=== PATIENT | female | born 1985 | race Hispanic/Latino ===

== ENCOUNTER 2016-08-08 21:50 | Outpatient (CLI) | payer MEDICAID ==
[2016-08-08 22:18] VITALS: BP 111/74
[2016-08-08] MEDS ORDERED: LACTATED RINGERS 500 ML IV ONE (22:28)
[2016-08-08] MEDS ORDERED: LACTATED RINGERS 1,000 ML ONE (22:38)
== END 2016-08-08 23:30 | disposition home or self-care (01) ==
LOC: TRG 21:50
PROVIDERS: ATTEND Obstetrics & Gynecology Gynecology
DX: O47.9 False labor, unspecified (principal); Z3A.00 Weeks of gestation of pregnancy not specified
CPT/HCPCS: 96360; J7120

== ENCOUNTER 2016-08-13 21:07 | Inpatient (IN) | payer MEDICAID ==
[2016-08-13] MEDS ORDERED: LACTATED RINGERS 1,000 ML IV ONE (21:17)
[2016-08-13 22:01] LABS: Bilirubin,Urine NEG (Negative); Blood,Urine SM (Negative); Ketones,Urine 80 mg/dL (Negative); Leukocyte Esterase,Urine LG (Negative); Mucus,Urine 1+ /HPF; Nitrite,Urine NEG (Negative)
[2016-08-13] MEDS ORDERED: ROCEPHIN/NS 2 GM/100 ML 100 ML IV ONE (22:01)
[2016-08-13] MEDS ORDERED: ZOFRAN IV ONE (22:02)
[2016-08-13] MEDS ORDERED: TYLENOL PO ONE (22:02)
[2016-08-13 22:03] LABS: WBC,Urine > 182.0 /HPF (0.0-6.0)
[2016-08-13 22:17] LABS: Basophils % (Auto) 0.2 % (0.0-1.8); Hematocrit 29.6 % (30.3-42.9); Hemoglobin 9.6 gm/dl (10.1-14.3); Mean Corpuscular HGB Conc 32 % (30-34); Mean Corpuscular Hemoglobin 28 pg (28-32); Mean Corpuscular Volume 88 fl (79-97); Platelet Count 293 K/mm3 (140-440); Red Blood Count 3.37 M/mm3 (3.65-5.03); Red Cell Distribution Width 16.2 % (13.2-15.2); White Blood Count 19.9 K/mm3 (4.5-11.0)
--- NOTE | 2016-08-13 23:34 | History and Physical Report ---
History of Present Illness Date of examination: 08/13/16 Chief complaint: Fever x 24 hrs History of present illness: Pt is a 31yo WF EDC 10/02/16; EGA 32 6/7 weeks presents to [facility] L&D complaining of fever and left sided back pains. She received care at [facility]. Essential history is patient is status post 2 prior admissions (on 06/06/2016 and 07/13/16) with pyelonephritis. She had Temp spikes and was started on Ancef. Urine culture on both visits were positive for Proteus mirabilis sensitive to most antibiotics except macrobid. She was discharged on Bactrim DS to complete 14 days. Claims to have been compliant with her medication. In Triage today, she has a temp of 103. No vaginal discharge, no loss of fluid , no uterine contractions plus movement WBC is 20 and UA shows large amount of white cells Growth scan obtained 07/14/2016 shows EFW 1253 g with a posterior placenta, ANTHONY 8.8 cm Past History Past Medical History: no pertinent history Past Surgical History: no surgical history [employer] History: denies: chlamydia, gonorrhea, hepatitis B, hepatitis C, herpes, HIV , syphilis Social history: single, full code. denies: smoking, alcohol abuse, prescription drug abuse, IV drug use - Obstetrical History Expected Date of Delivery: 10/02/16 Actual Gestation: 33 Week(s) 0 Day(s) : 5 Para: 4 Medications and Allergies Allergies Allergy/AdvReac Type Severity Reaction Status Date / Time No Known Allergies Allergy Verified 05/29/16 08:05 Home Medications Medication Instructions Recorded Confirmed Last Taken Type Sulfamethoxazole/Trimethoprim 1 tab PO BID #28 tab 06/09/16 Unknown Rx [Bactrim 400-80 mg] Acetaminophen [Acetaminophen TAB] 500 mg PO Q6HR #30 tablet 06/10/16 Unknown Rx Sulfamethoxazole/Trimethoprim 1 each PO BID #28 tablet 07/15/16 Unknown Rx [Bactrim DS TAB] Active Meds: Active Medications Acetaminophen (Tylenol) 500 mg PO Q6H ADELSO Lactated Ringer's (Lactated Ringers) 1,000 mls @ 150 mls/hr IV DIRECT ADELSO Review of Systems Constitutional: fever, fatigue Cardiovascular: no chest pain, no lightheadedness, no shortness of breath, no dyspnea on exertion, no high blood pressure Respiratory: no cough, no cough with sputum, no shortness of breath, no dyspnea on exertion Gastrointestinal: nausea, vomiting, no diarrhea Genitourinary: no vaginal bleeding, no vaginal discharge, no leakage of fluid - Vital Signs Vital signs: Vital Signs Temp 102.8 F H 08/13/16 21:20 Temp Pulse Resp BP Pulse Ox 103.1 F H 109 H 112/68 99 08/13/16 23:00 08/13/16 23:26 08/13/16 21:27 08/13/16 23:26 - Physical Exam Cardiovascular: Regular rate, Normal S1, Normal S2 Lungs: Positive: Clear to auscultation, Normal air movement Abdomen: Positive: normal appearance, soft, tenderness (mild tenderness). Negative: distention, guarding, rigidity Genitourinary (Female): Positive: normal external genitalia Vulva: both: normal Vagina: Negative: discharge Uterus: Positive: enlarged (EFW ~ 3400), tender Adnexa: both: normal Extremities: Positive: normal - Obstetrical FHR: category 2 ( tachycardia) Cervical Dilatation: 2 station: -3 Results Result Diagrams: 08/13/16 22:00 Abnormal lab results 08/13/16 08/13/16 Range/Units 21:31 22:00 WBC 19.9 H (4.5-11.0) K/mm3 RBC 3.37 L (3.65-5.03) M/mm3 Hgb 9.6 L (10.1-14.3) gm/dl Hct 29.6 L (30.3-42.9) % RDW 16.2 H (13.2-15.2) % Lymph % (Auto) 7.2 L (13.4-35.0) % [place] % (Auto) 7.7 H (0.0-7.3) % [place] # 1.5 H (0.0-0.8) K/mm3 Seg Neutrophils % 84.9 H (40.0-70.0) % Seg Neutrophils # 16.9 H (1.8-7.7) K/mm3 Urine WBC (Auto) > 182.0 H (0.0-6.0) /HPF All other labs normal. Assessment and Plan 31-year-old at 32+6 wks with suspected recurrent pyelonephritis -Cat 2 tracing with tachycardia Issues -Limited care -3rd admission for suspected Pyelo -Prior urine culture positive for Proteus mirabilis sensitive to Bactrim x 2 ( and 07/13/16) -Pyuria and Leukocytosis P: -Admit -Obtain labs including CMP (UA and CBC already complete) -HIV screen -Blood and Urine culture -UDS -IV fluid therapy -IV Zosyn -Antipyretic therapy -Renal sono and BPP -ID consult in AM - Patient Problems (1) 32 weeks gestation of Current Visit: Yes Status: Acute (2) Acute pyelonephritis in third trimester, antepartum Diagnosis Date: 07/14/16 Current Visit: No Status: Suspected (3) Urinary tract infection with pyuria Current Visit: Yes Status: Acute
[2016-08-13] MEDS ORDERED: SODIUM CHLORIDE FLUSH SYRINGE 10 ML IV PRN (23:43)
[2016-08-13] MEDS ORDERED: BENADRYL PO PRN (23:43)
[2016-08-13] MEDS ORDERED: COLACE PO PRN (23:43)
[2016-08-13] MEDS ORDERED: MYLICON PO PRN (23:43)
[2016-08-13] MEDS ORDERED: ALUM-MAG HYDROX-SIMETH 200-200-20MG/5ML PO PRN (23:43)
[2016-08-13] MEDS ORDERED: LACTATED RINGERS 1,000 ML IV SCH (23:45)
[2016-08-14] MEDS ORDERED: TYLENOL PO SCH
[2016-08-14] MEDS: ZOSYN/NS 4.5GM/100ML 100 ML IV SCH ×3 (01:30→20:30)
[2016-08-14] MEDS: TYLENOL PO SCH ×3 (04:58→19:23)
[2016-08-14 05:52] LABS: Alanine Aminotransferase 8 units/L (7-56); Albumin 3.2 g/dL (3.9-5); Albumin/Globulin Ratio 0.9 %; Alkaline Phosphatase 93 units/L (35-129); Anion Gap 27 mmol/L; BUN/Creatinine Ratio 12.85; Bilirubin,Total 1.7 mg/dL (0.1-1.2); Blood Urea Nitrogen 9 mg/dL (7-17); Calcium 8.8 mg/dL (8.4-10.2); Carbon Dioxide 18 mmol/L (22-30); Potassium 3.5 mmol/L (3.6-5.0); Sodium 135 mmol/L (137-145); Total Protein 6.6 g/dL (6.3-8.2)
[2016-08-14 05:53] LABS: Glucose 27 mg/dL (65-100)
[2016-08-14 06:14] LABS: HIV-1 Antigen p24 Non React (Non React); HIVR-1/2 Ab Non React (Non React)
--- NOTE | 2016-08-14 07:19 | Admit Criteria Form ---
Admission Criteria Documentation: PYELONEPHRITIS, ACUTE Clinical Indications for Admission to Inpatient Care (Place 'X' for any and all applicable criteria): Admission is indicated for ANY ONE of the following 1,2,3,4,5 [ ]I. Outpatient treatment has failed or is not feasible (eg, multidrug- resistant organism).5 [X]II. beyond 24 weeks' gestation6 [ ]III. Hemodynamic instability [ ]IV. Immunocompromised state (eg, AIDS, diabetes, sickle cell disease) [ ]V. Known renal or urologic abnormalities (eg, indwelling catheter, structural abnormalities, renal calculi, urinary stent, previous urologic surgery) [ ]. Condition that requires drainage procedure, including ANY ONE of the following: [ ]a) Urinary obstruction [ ]b) Pyelitis [ ]c) Pyonephrosis [ ]d) Renal or perinephric abscess [ ]e) Emphysematous pyelonephritis 7 [ ]VII. Inpatient admission required rather than observation care (Also use Pyelonephritis, Acute: Observation Care Criteria as appropriate) because of ANY ONE of the following: [ ]a) High fever or infection requiring inpatient admission as indicated by ANY ONE of [id number] [ ]A. Documented bacteremia [ ]B. Temp>104.9 [id number] (oral) [ ]C. Temp>103.10F (oral) or <96.80F (rectal) that does not respond to all emergency treatment [ ]b) Acute renal failure [ ]c) Other significant finding or clinical condition judged not to be within the scope of observation care [ ]d) IV fluid to replace significant ongoing (eg, for over 24hrs) losses (> 3 L/m2 per day) [ ]e) Other condition,treatment or monitoring requiring inpatient admission The original [email or web address] content created by [employer] has been revised. The portions of the content which have been revised are identified through the use of italic text or in bold, and [facility] has neither reviewed nor approved the modified material. All other unmodified content is copyright [facility]. Please see references footnoted in the original [email or web address] edition 2016 Admission Criteria Met: Yes
--- NOTE | 2016-08-14 07:23 | Progress Note ---
Assessment and Plan 31-year-old at 33 wks with suspected recurrent pyelonephritis -BPP 8/8 yesterday Issues -Left hydronephrosis (Renal scan on 08/13/16) -Limited care -3rd admission for suspected Pyelo -Prior urine culture positive for Proteus mirabilis sensitive to Bactrim x 2 ( and 07/13/16) -Pyuria and Leukocytosis P: -Urology consult placed -Infectious Disease consult placed -Continue present care for now - Patient Problems (1) 32 weeks gestation of Current Visit: Yes Status: Acute (2) Acute pyelonephritis in third trimester, antepartum Diagnosis Date: 07/14/16 Current Visit: No Status: Suspected (3) Urinary tract infection with pyuria Current Visit: Yes Status: Acute Subjective - Subjective Date of service: 08/14/16 Principal diagnosis: IUP at 33 wks, Recurrent [place] Interval history: Patient seen and examined, stable. Temp still elevated at 102, no nausea vomiting at this time BPP obtained last night is 8 out of 8 with heart rate at 151 Renal ultrasound obtained on 08/13/2016 shows hydronephrosis in the left kidney at 2.3 cm extending into the renal pelvis. Left renal pelvis and calluses appear dilated. Left kidney appears enlarged Patient reports: new complaints, movement normal, no loss of fluid, no vaginal bleeding, no contractions Objective - Vital Signs Vital Signs: Vital Signs - 12hr 08/13/16 08/13/16 08/13/16 21:20 21:26 21:27 Temperature 102.8 F H Pulse Rate 127 H 127 H Respiratory Rate Blood Pressure 112/68 Blood Pressure [Right Arm] O2 Sat by Pulse 98 Oximetry 08/13/16 08/13/16 08/13/16 21:31 21:36 21:41 Temperature Pulse Rate 119 H 121 H 116 H Respiratory Rate Blood Pressure Blood Pressure [Right Arm] O2 Sat by Pulse 98 97 97 Oximetry 08/13/16 08/13/16 08/13/16 21:46 21:51 21:56 Temperature Pulse Rate 121 H 117 H 111 H Respiratory Rate Blood Pressure Blood Pressure [Right Arm] O2 Sat by Pulse 98 96 99 Oximetry 08/13/16 08/13/16 08/13/16 22:01 22:06 22:11 Temperature Pulse Rate 112 H 112 H 114 H Respiratory Rate Blood Pressure Blood Pressure [Right Arm] O2 Sat by Pulse 98 98 98 Oximetry 08/13/16 08/13/16 08/13/16 22:16 22:21 22:26 Temperature Pulse Rate 112 H 119 H 114 H Respiratory Rate Blood Pressure Blood Pressure [Right Arm] O2 Sat by Pulse 99 98 97 Oximetry 08/13/16 08/13/16 08/13/16 22:31 22:36 22:41 Temperature Pulse Rate 109 H 107 H 113 H Respiratory Rate Blood Pressure Blood Pressure [Right Arm] O2 Sat by Pulse 97 98 100 Oximetry 08/13/16 08/13/16 08/13/16 22:44 22:46 22:51 Temperature Pulse Rate 112 H 114 H 116 H Respiratory Rate Blood Pressure Blood Pressure [Right Arm] O2 Sat by Pulse 90 100 96 Oximetry 08/13/16 08/13/16 08/13/16 22:56 23:00 23:01 Temperature 103.1 F H Pulse Rate 117 H 113 H Respiratory Rate Blood Pressure Blood Pressure [Right Arm] O2 Sat by Pulse 94 97 Oximetry 08/13/16 08/13/16 08/13/16 23:06 23:11 23:16 Temperature Pulse Rate 115 H 113 H Respiratory Rate Blood Pressure Blood Pressure [Right Arm] O2 Sat by Pulse 95 96 91 Oximetry 08/13/16 08/13/16 08/13/16 23:21 23:26 23:36 Temperature Pulse Rate 113 H 109 H 108 H Respiratory Rate Blood Pressure Blood Pressure [Right Arm] O2 Sat by Pulse 97 99 96 Oximetry 08/13/16 08/13/16 08/13/16 23:41 23:42 23:46 Temperature Pulse Rate 113 H 109 H 109 H Respiratory Rate Blood Pressure 107/54 Blood Pressure [Right Arm] O2 Sat by Pulse 96 96 Oximetry 08/13/16 08/13/16 08/14/16 23:51 23:56 00:01 Temperature Pulse Rate 108 H 110 H 108 H Respiratory Rate Blood Pressure Blood Pressure [Right Arm] O2 Sat by Pulse 94 94 96 Oximetry 08/14/16 08/14/16 08/14/16 00:04 00:06 00:09 Temperature Pulse Rate 104 H 106 H 109 H Respiratory Rate Blood Pressure Blood Pressure [Right Arm] O2 Sat by Pulse 94 95 94 Oximetry 08/14/16 08/14/1608/14/17 00:11 00:16 00:21 Temperature Pulse Rate 108 H 110 H 103 H Respiratory Rate Blood Pressure Blood Pressure [Right Arm] O2 Sat by Pulse 94 98 97 Oximetry 08/14/16 08/14/16 08/14/16 00:26 00:31 00:36 Temperature Pulse Rate 105 H 110 H 99 H Respiratory Rate Blood Pressure Blood Pressure [Right Arm] O2 Sat by Pulse 97 98 99 Oximetry 08/14/16 08/14/16 08/14/16 00:41 00:46 00:51 Temperature Pulse Rate 110 H 112 H 109 H Respiratory Rate Blood Pressure Blood Pressure [Right Arm] O2 Sat by Pulse 98 97 98 Oximetry 08/14/16 08/14/16 08/14/16 00:56 01:01 01:06 Temperature Pulse Rate 108 H 114 H 112 H Respiratory Rate Blood Pressure Blood Pressure [Right Arm] O2 Sat by Pulse 99 98 98 Oximetry 08/14/16 08/14/16 08/14/16 01:11 01:16 01:21 Temperature Pulse Rate 111 H 104 H 107 H Respiratory Rate Blood Pressure Blood Pressure [Right Arm] O2 Sat by Pulse 99 99 99 Oximetry 08/14/16 08/14/16 08/14/16 01:26 01:30 01:31 Temperature 101.7 F H Pulse Rate 123 H 110 H Respiratory Rate Blood Pressure Blood Pressure [Right Arm] O2 Sat by Pulse 98 98 Oximetry 08/14/16 08/14/16 08/14/16 01:36 01:41 01:46 Temperature Pulse Rate 107 H 106 H 106 H Respiratory Rate Blood Pressure Blood Pressure [Right Arm] O2 Sat by Pulse 97 97 98 Oximetry 08/14/16 08/14/16 08/14/16 01:51 01:56 02:01 Temperature Pulse Rate 108 H 109 H 124 H Respiratory Rate Blood Pressure Blood Pressure [Right Arm] O2 Sat by Pulse 98 98 99 Oximetry 08/14/16 08/14/16 08/14/16 02:06 02:11 02:16 Temperature Pulse Rate 116 H 114 H 114 H Respiratory Rate Blood Pressure Blood Pressure [Right Arm] O2 Sat by Pulse 98 96 97 Oximetry 08/14/16 08/14/16 08/14/16 02:21 02:26 02:31 Temperature Pulse Rate 117 H 117 H 119 H Respiratory Rate Blood Pressure Blood Pressure [Right Arm] O2 Sat by Pulse 96 96 97 Oximetry 08/14/16 08/14/16 08/14/16 02:36 02:41 02:42 Temperature Pulse Rate 118 H 118 H 117 H Respiratory Rate Blood Pressure Blood Pressure [Right Arm] O2 Sat by Pulse 96 96 94 Oximetry 08/14/16 08/14/16 08/14/16 02:46 02:47 02:51 Temperature Pulse Rate 115 H 111 H 127 H Respiratory Rate Blood Pressure Blood Pressure [Right Arm] O2 Sat by Pulse 96 94 93 Oximetry 08/14/16 08/14/16 08/14/16 02:56 03:01 03:06 Temperature Pulse Rate 121 H 120 H 121 H Respiratory Rate Blood Pressure Blood Pressure [Right Arm] O2 Sat by Pulse 96 97 96 Oximetry 08/14/16 08/14/16 08/14/16 03:11 03:16 03:21 Temperature Pulse Rate 117 H 121 H 124 H Respiratory Rate Blood Pressure Blood Pressure [Right Arm] O2 Sat by Pulse 98 98 98 Oximetry 08/14/16 08/14/16 08/14/16 03:26 03:31 03:36 Temperature Pulse Rate 121 H 121 H 122 H Respiratory Rate Blood Pressure Blood Pressure [Right Arm] O2 Sat by Pulse 96 95 96 Oximetry 08/14/16 08/14/16 08/14/16 03:39 03:41 03:46 Temperature Pulse Rate 122 H 125 H 123 H Respiratory Rate Blood Pressure Blood Pressure [Right Arm] O2 Sat by Pulse 94 96 97 Oximetry 08/14/16 08/14/16 08/14/16 03:51 04:23 04:27 Temperature Pulse Rate 122 H 121 H 118 H Respiratory Rate Blood Pressure 101/52 Blood Pressure [Right Arm] O2 Sat by Pulse 97 96 Oximetry 08/14/16 08/14/16 08/14/16 04:28 04:30 04:33 Temperature 100.9 F H Pulse Rate 121 H 119 H Respiratory 18 Rate Blood Pressure Blood Pressure 101/52 [Right Arm] O2 Sat by Pulse 96 96 Oximetry 08/14/16 08/14/16 08/14/16 04:38 04:43 04:48 Temperature Pulse Rate 121 H 120 H 123 H Respiratory Rate Blood Pressure Blood Pressure [Right Arm] O2 Sat by Pulse 95 96 95 Oximetry 08/14/16 08/14/16 08/14/16 04:51 04:53 04:55 Temperature 102.1 F H Pulse Rate 120 H 124 H Respiratory Rate Blood Pressure Blood Pressure [Right Arm] O2 Sat by Pulse 94 95 Oximetry 08/14/16 08/14/16 08/14/16 04:58 05:03 05:08 Temperature Pulse Rate 121 H 121 H 119 H Respiratory Rate Blood Pressure Blood Pressure [Right Arm] O2 Sat by Pulse 95 95 95 Oximetry 08/14/16 08/14/16 08/14/16 05:13 05:18 05:23 Temperature Pulse Rate 121 H 115 H 122 H Respiratory Rate Blood Pressure Blood Pressure [Right Arm] O2 Sat by Pulse 96 96 95 Oximetry 08/14/16 08/14/16 08/14/16 05:28 05:33 05:35 Temperature 102.1 F H Pulse Rate 122 H 126 H 119 H Respiratory Rate Blood Pressure Blood Pressure [Right Arm] O2 Sat by Pulse 97 96 94 Oximetry 08/14/16 08/14/16 08/14/16 05:38 05:41 05:43 Temperature Pulse Rate 120 H 117 H 116 H Respiratory Rate Blood Pressure Blood Pressure [Right Arm] O2 Sat by Pulse 94 94 94 Oximetry 08/14/16 08/14/16 08/14/16 05:47 05:48 05:53 Temperature Pulse Rate 116 H 117 H 117 H Respiratory Rate Blood Pressure Blood Pressure [Right Arm] O2 Sat by Pulse 94 94 94 Oximetry 08/14/16 08/14/16 08/14/16 05:55 05:58 06:02 Temperature Pulse Rate 114 H 122 H 117 H Respiratory Rate Blood Pressure Blood Pressure [Right Arm] O2 Sat by Pulse 94 94 94 Oximetry 08/14/16 08/14/16 08/14/16 06:03 06:08 06:13 Temperature Pulse Rate 119 H 116 H 120 H Respiratory Rate Blood Pressure Blood Pressure [Right Arm] O2 Sat by Pulse 95 94 95 Oximetry 08/14/16 08/14/16 08/14/16 06:17 06:18 06:23 Temperature Pulse Rate 116 H 116 H 119 H Respiratory Rate Blood Pressure Blood Pressure [Right Arm] O2 Sat by Pulse 94 96 96 Oximetry 08/14/16 08/14/16 08/14/16 06:28 06:33 06:38 Temperature Pulse Rate 119 H 116 H 113 H Respiratory Rate Blood Pressure Blood Pressure [Right Arm] O2 Sat by Pulse 96 96 96 Oximetry 08/14/16 08/14/16 08/14/16 06:43 06:48 06:52 Temperature Pulse Rate 109 H 111 H 107 H Respiratory Rate Blood Pressure Blood Pressure [Right Arm] O2 Sat by Pulse 96 96 94 Oximetry 08/14/16 08/14/16 08/14/16 06:53 06:58 07:03 Temperature Pulse Rate 107 H 111 H 106 H Respiratory Rate Blood Pressure Blood Pressure [Right Arm] O2 Sat by Pulse 96 97 95 Oximetry 08/14/16 08/14/16 07:08 07:13 Temperature Pulse Rate 109 H 110 H Respiratory Rate Blood Pressure Blood Pressure [Right Arm] O2 Sat by Pulse 96 96 Oximetry - Exam Lungs: Clear to auscultation Uterus: Absent: tenderness FHR: category 1 Cervical Dilatation: 1.5 - Labs Labs: Abnormal Labs 08/13/16 08/13/16 08/13/16 21:31 22:00 22:00 WBC 19.9 H RBC 3.37 L Hgb 9.6 L Hct 29.6 L RDW 16.2 H Lymph % (Auto) 7.2 L [place] % (Auto) 7.7 H [place] # 1.5 H Seg Neutrophils % 84.9 H Seg Neutrophils # 16.9 H Sodium 135 L Potassium 3.5 L Chloride 94.0 L Carbon Dioxide 18 L Glucose 27 L* Total Bilirubin 1.7 H Albumin 3.2 L Urine WBC (Auto) > 182.0 H Laboratory Results - last 24 hr 08/13/16 08/13/16 08/13/16 21:31 22:00 22:00 WBC 19.9 H RBC 3.37 L Hgb 9.6 L Hct 29.6 L MCV 88 MCH 28 MCHC 32 RDW 16.2 H Plt Count 293 Lymph % (Auto) 7.2 L [place] % (Auto) 7.7 H Eos % (Auto) 0.0 Baso % (Auto) 0.2 Lymph # 1.4 [place] # 1.5 H Eos # 0.0 Baso # 0.0 Seg Neutrophils % 84.9 H Seg Neutrophils # 16.9 H Sodium 135 L Potassium 3.5 L Chloride 94.0 L Carbon Dioxide 18 L Anion Gap 27 BUN 9 Creatinine 0.7 Estimated GFR > 60 BUN/Creatinine Ratio 12.85 Glucose 27 L* POC Glucose Calcium 8.8 Total Bilirubin 1.7 H AST 11 ALT 8 Alkaline Phosphatase 93 Total Protein 6.6 Albumin 3.2 L Albumin/Globulin Ratio 0.9 Urine Color Bonnie Urine Turbidity Cloudy Urine pH 6.0 Ur Specific [place] 1.025 Urine Protein 100 mg/dl Urine Glucose (UA) Neg Urine Ketones 80 Urine Blood Sm Urine Nitrite Neg Urine Bilirubin Neg Urine Urobilinogen 2.0 Ur Leukocyte Esterase Lg Urine WBC (Auto) > 182.0 H Urine RBC (Auto) 10.0 U Epithel Cells (Auto) 7.0 Urine Mucus 1+ HIV 1&2 Antibody Rapid HIV P24 Antigen 08/13/16 08/14/16 22:00 05:57 WBC RBC Hgb Hct MCV MCH MCHC RDW Plt Count Lymph % (Auto) Camp % (Auto) Eos % (Auto) Baso % (Auto) Lymph # Camp # Eos # Baso # Seg Neutrophils % Seg Neutrophils # Sodium Potassium Chloride Carbon Dioxide Anion Gap BUN Creatinine Estimated GFR BUN/Creatinine Ratio Glucose POC Glucose 86 Calcium Total Bilirubin AST ALT Alkaline Phosphatase Total Protein Albumin Albumin/Globulin Ratio Urine Color Urine Turbidity Urine pH Ur Specific [place] Urine Protein Urine Glucose (UA) Urine Ketones Urine Blood Urine Nitrite Urine Bilirubin Urine Urobilinogen Ur Leukocyte Esterase Urine WBC (Auto) Urine RBC (Auto) U Epithel Cells (Auto) Urine Mucus HIV 1&2 Antibody Rapid Non react HIV P24 Antigen Non react
--- NOTE | 2016-08-14 08:40 | Ultrasound Report ---
BIOPHYSICAL PROFILE: Technique: Transabdominal ultrasound with Doppler interrogation. 2 - breathing movements 2 - movements 2 - posture and tone 2 - Qualitative amniotic fluid volume 8 - TOTAL SCORE OF POSSIBLE 8 Heart Rate (bpm) 151
--- NOTE | 2016-08-14 10:16 | Ultrasound Report ---
OB LIMITED: TECHNIQUE: Transabdominal ultrasound with Doppler interrogation. Gestation: posada Amniotic Fluid: WNL (7-24 cm) ANTHONY = 9.7 cm Heart Rate: 161 BPM
--- NOTE | 2016-08-14 11:05 | Ultrasound Report ---
RENAL SONOGRAM: HISTORY: Recurrent pyelonephritis. FINDINGS: Right kidney measures 10.7 x 6.1 x 6 cm. Cortical thickness 1.6 cm. No mass. No hydronephrosis. Left kidney measures 14.2 x 7.1 x 5.7 cm. Cortical thickness 2.8 cm. There is dilatation noted of the intrarenal collecting system of left kidney and the pelvis of the left ureter suggestive of hydronephrosis. No mass. IMPRESSION: Hydronephrosis left kidney.
[2016-08-14] MEDS: PRENATAL VITAMIN PO SCH (11:29)
--- NOTE | 2016-08-14 12:03 | Consultation ---
History of Present Illness - Reason for Consult Consult date: 08/14/16 UTI - History of Present Illness This is a 31 year old woman who is 33 weeks gestation presented to [facility] L& D with left flank pain, fevers, nausea and vomiting x 1 day. She said she had 2 previous episodes of urinary tract infection. Urine cultures on 06/06/16 and with Proteus mirabilis. She currently has a urinalysis with greater than 182 wbc, peripheral wbc of 19, blood and urine culture pending. Tmax during this admission is 103. Ultrasound revealed left hydronephrosis. She was initiated on zosyn and infectious disease was called to evaluate Past History Social history: single, full code. denies: smoking (smoked before she was ), alcohol abuse, prescription drug abuse, IV drug use Family history: no significant family history Medications and Allergies Allergies Allergy/AdvReac Type Severity Reaction Status Date / Time No Known Allergies Allergy Verified 05/29/16 08:05 Home Medications Medication Instructions Recorded Confirmed Last Taken Type Sulfamethoxazole/Trimethoprim 1 tab PO BID #28 tab 06/09/16 Unknown Rx [Bactrim 400-80 mg] Acetaminophen [Acetaminophen TAB] 500 mg PO Q6HR #30 tablet 06/10/16 Unknown Rx Sulfamethoxazole/Trimethoprim 1 each PO BID #28 tablet 07/15/16 Unknown Rx [Bactrim DS TAB] Active Meds: Active Medications Acetaminophen (Tylenol) 500 mg PO Q6H [facility] Last Admin: 08/14/16 11:28 Dose: 500 mg Al Hydrox/Mg Hydrox/Simethicone (Alum-Mag Hydrox-Simeth [id number]/5ml) 30 ml PO Q6H PRN PRN Reason: Indigestion Diphenhydramine HCl (Benadryl) 25 mg PO Q6H PRN PRN Reason: Itching Docusate Sodium (Colace) 100 mg PO Q12H PRN PRN Reason: Constipation Lactated Ringer's (Lactated Ringers) 1,000 mls @ 150 mls/hr IV DIRECT ADELSO Dextrose/Lactated Ringer's (D5lr) 1,000 mls @ 150 mls/hr IV DIRECT ADELSO Piperacillin Sod/Tazobactam Sod (Zosyn/Ns 4.5gm/100ml) 100 mls @ 200 mls/hr IV Q8H ADELSO PRN Reason: Protocol Last Admin: 08/14/16 11:27 Dose: 200 mls/hr Multivitamins/Iron/Calcium ( Vitamin) 1 each PO QDAY [facility] Last Admin: 08/14/16 11:29 Dose: 1 each Simethicone (Mylicon) 80 mg PO Q6H PRN PRN Reason: Gas pain Sodium Chloride (Sodium Chloride Flush Syringe 10 Ml) 10 ml IV PRN PRN PRN Reason: LINE FLUSH Review of Systems Constitutional: weight gain, fever, fatigue, no weight loss, no chills, no weakness Ears, nose, mouth and throat: no ear discharge, no decreased hearing, no nose pain, no mouth pain Breasts: deferred Cardiovascular: no chest pain, no orthopnea, no palpitations Respiratory: no cough, no excessive sputum, no shortness of breath, no pleurisy Gastrointestinal: nausea, vomiting, no diarrhea, no constipation, no melena Genitourinary Female: no pelvic pain, no dysuria, no urinary frequency Menstruation: other (33 weeks gestation) Rectal: no pain, no incontinence Musculoskeletal: other (left flank pain), no neck pain, no shooting arm pain Integumentary: no rash, no redness, no lesions, no depigmentation Neurological: no paralysis, no parathesias, no migraines, no convulsions Psychiatric: no memory loss, no sleep disturbances, no insomnia, no hallucinations, no paranoia Endocrine: no cold intolerance, no heat intolerance, no polyphagia, no excessive thirst, no proptosis Physical Examination - Constitutional Vitals: Selected Entries 08/13/16 08/14/16 08/14/16 21:20 05:35 10:01 Temperature 102.8 F H 102.1 F H Pulse Rate O2 Sat by Pulse Oximetry Blood Pressure 111/56 [Right Arm] 08/14/16 08/14/16 11:45 11:54 Temperature 99.4 F Pulse Rate 115 H O2 Sat by Pulse 96 Oximetry Blood Pressure [Right Arm] General appearance: Present: no acute distress, well-nourished - EENT Eyes: Present: PERRL, EOM intact. Absent: scleral icterus, conjunctival injection ENT: hearing intact, clear oral mucosa, no oropharyngeal erythema - Neck Neck: Present: supple, normal ROM. Absent: enlarged thyroid, masses or JVD - Respiratory Respiratory effort: normal Respiratory: bilateral: CTA - Cardiovascular Rhythm: regular Heart Sounds: Present: S1 & S2 - Extremities Extremities: no ischemia, No edema - Abdominal General gastrointestinal: Present: other (exam not done 33 weeks gestation) Female genitourinary: Present: deferred - Rectal Rectal Exam: deferred - Integumentary Integumentary: Present: clear, warm, dry. Absent: jaundice, rash - Musculoskeletal Musculoskeletal: strength equal bilaterally - Psychiatric Psychiatric: appropriate mood/affect Results - Labs CBC & Chem 7: 08/13/16 22:00 08/13/16 22:00 Labs: Microbiology 08/14/16 07:57 Peripheral/Venous Blood Culture - Preliminary Culture in Progress 08/14/16 07:19 Peripheral/Venous Blood Culture - Preliminary Culture in Progress 08/13/16 21:31 Urine,Clean Catch Urine Culture - Preliminary Laboratory Tests 08/13/16 08/13/16 08/13/16 21:31 22:00 22:00 WBC 19.9 H Plt Count 293 Creatinine 0.7 Estimated GFR > 60 Urine WBC (Auto) > 182.0 H HIV 1&2 Antibody Rapid HIV P24 Antigen 08/13/16 22:00 WBC Plt Count Creatinine Estimated GFR Urine WBC (Auto) HIV 1&2 Antibody Rapid Non react HIV P24 Antigen Non react Assessment and Plan Antibiotics: 1) Zosyn 4.5gm iv Q8H (08/14 Previously treated with Bactrim in May and June This is a pleasant 31 year old woman who is 33 weeks gestation presented to [facility] L&D on 08/13/16 with left flank pain, fevers, nausea and vomiting. Found to have pyuria with left hydronephrosis. Urine and blood cultures pending Problems 1) complicated UTI/pyelonephritis in this patient who is 33 weeks gestation. Ultrasound with left hydronephrosis. She had 2 previous UTI with Proteus mirabilis. 2) leukocytosis, related to #1 3) left hydronephrosis in the setting of with UTI, this patient would benefit from a urology consult Plan: 1) continue zosyn for now 2) await urine and blood culture results 3) Urology consult 4) further decisions based on culture results and urology input
[2016-08-14] MEDS: D5LR 1,000 ML IV SCH ×2 (12:46→18:36)
--- NOTE | 2016-08-14 13:05 | Progress Note ---
Assessment and Plan LCVAT high spiking temps inc wbc for L stent poss Lp[erc dictated spoke with Dr Das Subjective Date of service: 08/14/16 Principal diagnosis: IUP at 33 wks, Recurrent Pyelo Objective - Constitutional Vitals: Vital Signs - 12hr 08/14/16 08/14/16 08/14/16 01:06 01:11 01:16 Temperature Pulse Rate 112 H 111 H 104 H Pulse Rate [ From Monitor] Respiratory Rate Blood Pressure Blood Pressure [Right Arm] O2 Sat by Pulse 98 99 99 Oximetry 08/14/16 08/14/16 08/14/16 01:21 01:26 01:30 Temperature 101.7 F H Pulse Rate 107 H 123 H Pulse Rate [ From Monitor] Respiratory Rate Blood Pressure Blood Pressure [Right Arm] O2 Sat by Pulse 99 98 Oximetry 08/14/16 08/14/16 08/14/16 01:31 01:36 01:41 Temperature Pulse Rate 110 H 107 H 106 H Pulse Rate [ From Monitor] Respiratory Rate Blood Pressure Blood Pressure [Right Arm] O2 Sat by Pulse 98 97 97 Oximetry 08/14/16 08/14/16 08/14/16 01:46 01:51 01:56 Temperature Pulse Rate 106 H 108 H 109 H Pulse Rate [ From Monitor] Respiratory Rate Blood Pressure Blood Pressure [Right Arm] O2 Sat by Pulse 98 98 98 Oximetry 08/14/16 08/14/16 08/14/16 02:01 02:06 02:11 Temperature Pulse Rate 124 H 116 H 114 H Pulse Rate [ From Monitor] Respiratory Rate Blood Pressure Blood Pressure [Right Arm] O2 Sat by Pulse 99 98 96 Oximetry 08/14/16 08/14/16 08/14/16 02:16 02:21 02:26 Temperature Pulse Rate 114 H 117 H 117 H Pulse Rate [ From Monitor] Respiratory Rate Blood Pressure Blood Pressure [Right Arm] O2 Sat by Pulse 97 96 96 Oximetry 08/14/16 08/14/16 08/14/16 02:31 02:36 02:41 Temperature Pulse Rate 119 H 118 H 118 H Pulse Rate [ From Monitor] Respiratory Rate Blood Pressure Blood Pressure [Right Arm] O2 Sat by Pulse 97 96 96 Oximetry 08/14/16 08/14/16 08/14/16 02:42 02:46 02:47 Temperature Pulse Rate 117 H 115 H 111 H Pulse Rate [ From Monitor] Respiratory Rate Blood Pressure Blood Pressure [Right Arm] O2 Sat by Pulse 94 96 94 Oximetry 08/14/16 08/14/16 08/14/16 02:51 02:56 03:01 Temperature Pulse Rate 127 H 121 H 120 H Pulse Rate [ From Monitor] Respiratory Rate Blood Pressure Blood Pressure [Right Arm] O2 Sat by Pulse 93 96 97 Oximetry 08/14/16 08/14/16 08/14/16 03:06 03:11 03:16 Temperature Pulse Rate 121 H 117 H 121 H Pulse Rate [ From Monitor] Respiratory Rate Blood Pressure Blood Pressure [Right Arm] O2 Sat by Pulse 96 98 98 Oximetry 08/14/16 08/14/16 08/14/16 03:21 03:26 03:31 Temperature Pulse Rate 124 H 121 H 121 H Pulse Rate [ From Monitor] Respiratory Rate Blood Pressure Blood Pressure [Right Arm] O2 Sat by Pulse 98 96 95 Oximetry 08/14/16 08/14/16 08/14/16 03:36 03:39 03:41 Temperature Pulse Rate 122 H 122 H 125 H Pulse Rate [ From Monitor] Respiratory Rate Blood Pressure Blood Pressure [Right Arm] O2 Sat by Pulse 96 94 96 Oximetry 08/14/16 08/14/16 08/14/16 03:46 03:51 04:23 Temperature Pulse Rate 123 H 122 H 121 H Pulse Rate [ From Monitor] Respiratory Rate Blood Pressure Blood Pressure [Right Arm] O2 Sat by Pulse 97 97 96 Oximetry 08/14/16 08/14/16 08/14/16 04:27 04:28 04:30 Temperature 100.9 F H Pulse Rate 118 H 121 H Pulse Rate [ From Monitor] Respiratory 18 Rate Blood Pressure 101/52 Blood Pressure 101/52 [Right Arm] O2 Sat by Pulse 96 Oximetry 08/14/16 08/14/16 08/14/16 04:33 04:38 04:43 Temperature Pulse Rate 119 H 121 H 120 H Pulse Rate [ From Monitor] Respiratory Rate Blood Pressure Blood Pressure [Right Arm] O2 Sat by Pulse 96 95 96 Oximetry 08/14/16 08/14/16 08/14/16 04:48 04:51 04:53 Temperature Pulse Rate 123 H 120 H 124 H Pulse Rate [ From Monitor] Respiratory Rate Blood Pressure Blood Pressure [Right Arm] O2 Sat by Pulse 95 94 95 Oximetry 08/14/16 08/14/16 08/14/16 04:55 04:58 05:03 Temperature 102.1 F H Pulse Rate 121 H 121 H Pulse Rate [ From Monitor] Respiratory Rate Blood Pressure Blood Pressure [Right Arm] O2 Sat by Pulse 95 95 Oximetry 08/14/16 08/14/16 08/14/16 05:08 05:13 05:18 Temperature Pulse Rate 119 H 121 H 115 H Pulse Rate [ From Monitor] Respiratory Rate Blood Pressure Blood Pressure [Right Arm] O2 Sat by Pulse 95 96 96 Oximetry 08/14/16 08/14/16 08/14/16 05:23 05:28 05:33 Temperature Pulse Rate 122 H 122 H 126 H Pulse Rate [ From Monitor] Respiratory Rate Blood Pressure Blood Pressure [Right Arm] O2 Sat by Pulse 95 97 96 Oximetry 08/14/16 08/14/16 08/14/16 05:35 05:38 05:41 Temperature 102.1 F H Pulse Rate 119 H 120 H 117 H Pulse Rate [ From Monitor] Respiratory Rate Blood Pressure Blood Pressure [Right Arm] O2 Sat by Pulse 94 94 94 Oximetry 08/14/16 08/14/16 08/14/16 05:43 05:47 05:48 Temperature Pulse Rate 116 H 116 H 117 H Pulse Rate [ From Monitor] Respiratory Rate Blood Pressure Blood Pressure [Right Arm] O2 Sat by Pulse 94 94 94 Oximetry 08/14/16 08/14/16 08/14/16 05:53 05:55 05:58 Temperature Pulse Rate 117 H 114 H 122 H Pulse Rate [ From Monitor] Respiratory Rate Blood Pressure Blood Pressure [Right Arm] O2 Sat by Pulse 94 94 94 Oximetry 08/14/16 08/14/16 08/14/16 06:02 06:03 06:08 Temperature Pulse Rate 117 H 119 H 116 H Pulse Rate [ From Monitor] Respiratory Rate Blood Pressure Blood Pressure [Right Arm] O2 Sat by Pulse 94 95 94 Oximetry 08/14/16 08/14/16 08/14/16 06:13 06:17 06:18 Temperature Pulse Rate 120 H 116 H 116 H Pulse Rate [ From Monitor] Respiratory Rate Blood Pressure Blood Pressure [Right Arm] O2 Sat by Pulse 95 94 96 Oximetry 08/14/16 08/14/16 08/14/16 06:23 06:28 06:33 Temperature Pulse Rate 119 H 119 H 116 H Pulse Rate [ From Monitor] Respiratory Rate Blood Pressure Blood Pressure [Right Arm] O2 Sat by Pulse 96 96 96 Oximetry 08/14/16 08/14/16 08/14/16 06:38 06:43 06:48 Temperature Pulse Rate 113 H 109 H 111 H Pulse Rate [ From Monitor] Respiratory Rate Blood Pressure Blood Pressure [Right Arm] O2 Sat by Pulse 96 96 96 Oximetry 08/14/16 08/14/16 08/14/16 06:52 06:53 06:58 Temperature Pulse Rate 107 H 107 H 111 H Pulse Rate [ From Monitor] Respiratory Rate Blood Pressure Blood Pressure [Right Arm] O2 Sat by Pulse 94 96 97 Oximetry 08/14/16 08/14/16 08/14/16 07:03 07:08 07:13 Temperature Pulse Rate 106 H 109 H 110 H Pulse Rate [ From Monitor] Respiratory Rate Blood Pressure Blood Pressure [Right Arm] O2 Sat by Pulse 95 96 96 Oximetry 08/14/16 08/14/16 08/14/16 07:16 07:18 07:23 Temperature Pulse Rate 108 H 117 H 108 H Pulse Rate [ From Monitor] Respiratory Rate Blood Pressure Blood Pressure [Right Arm] O2 Sat by Pulse 94 96 97 Oximetry 08/14/16 08/14/16 08/14/16 07:28 07:33 07:38 Temperature Pulse Rate 104 H 117 H 103 H Pulse Rate [ From Monitor] Respiratory Rate Blood Pressure Blood Pressure [Right Arm] O2 Sat by Pulse 97 99 96 Oximetry 08/14/16 08/14/16 08/14/16 07:43 07:46 07:48 Temperature Pulse Rate 107 H 105 H 106 H Pulse Rate [ From Monitor] Respiratory Rate Blood Pressure Blood Pressure [Right Arm] O2 Sat by Pulse 95 94 95 Oximetry 08/14/16 08/14/16 08/14/16 07:51 07:53 07:58 Temperature Pulse Rate 103 H 104 H 101 H Pulse Rate [ From Monitor] Respiratory Rate Blood Pressure Blood Pressure [Right Arm] O2 Sat by Pulse 94 96 98 Oximetry 08/14/16 08/14/16 08/14/16 08:03 08:08 08:13 Temperature Pulse Rate 102 H 100 H 101 H Pulse Rate [ From Monitor] Respiratory Rate Blood Pressure Blood Pressure [Right Arm] O2 Sat by Pulse 97 97 98 Oximetry 08/14/16 08/14/16 08/14/16 08:18 08:23 08:28 Temperature Pulse Rate 105 H 101 H 104 H Pulse Rate [ From Monitor] Respiratory Rate Blood Pressure Blood Pressure [Right Arm] O2 Sat by Pulse 98 98 97 Oximetry 08/14/16 08/14/16 08/14/16 08:33 08:38 08:43 Temperature Pulse Rate 103 H 102 H 100 H Pulse Rate [ From Monitor] Respiratory Rate Blood Pressure Blood Pressure [Right Arm] O2 Sat by Pulse 98 98 98 Oximetry 08/14/16 08/14/16 08/14/16 08:49 08:53 08:54 Temperature 99.1 F Pulse Rate 104 H 98 H Pulse Rate [ From Monitor] Respiratory 28 H Rate Blood Pressure Blood Pressure 99/56 [Right Arm] O2 Sat by Pulse 99 97 Oximetry 08/14/16 08/14/16 08/14/16 08:56 08:59 09:04 Temperature Pulse Rate 99 H 102 H 102 H Pulse Rate [ From Monitor] Respiratory Rate Blood Pressure 99/56 Blood Pressure [Right Arm] O2 Sat by Pulse 98 98 Oximetry 08/14/16 08/14/16 08/14/16 09:09 09:14 09:19 Temperature Pulse Rate 110 H 105 H 107 H Pulse Rate [ From Monitor] Respiratory Rate Blood Pressure Blood Pressure [Right Arm] O2 Sat by Pulse 97 98 97 Oximetry 08/14/16 08/14/16 08/14/16 09:24 09:29 09:34 Temperature Pulse Rate 108 H 108 H 108 H Pulse Rate [ From Monitor] Respiratory Rate Blood Pressure Blood Pressure [Right Arm] O2 Sat by Pulse 98 97 96 Oximetry 08/14/16 08/14/16 08/14/16 09:39 09:44 09:49 Temperature Pulse Rate 121 H 108 H 104 H Pulse Rate [ From Monitor] Respiratory Rate Blood Pressure Blood Pressure [Right Arm] O2 Sat by Pulse 96 97 96 Oximetry 08/14/16 08/14/16 08/14/16 09:54 09:59 10:01 Temperature 100.2 F H Pulse Rate 107 H 118 H Pulse Rate [ 106 H From Monitor] Respiratory 20 Rate Blood Pressure Blood Pressure 111/56 [Right Arm] O2 Sat by Pulse 97 98 Oximetry 08/14/16 08/14/16 08/14/16 10:02 10:04 10:09 Temperature Pulse Rate 108 H 105 H 106 H Pulse Rate [ From Monitor] Respiratory Rate Blood Pressure 111/56 Blood Pressure [Right Arm] O2 Sat by Pulse 98 95 Oximetry 08/14/16 08/14/16 08/14/16 10:14 10:19 10:24 Temperature Pulse Rate 104 H 109 H 124 H Pulse Rate [ From Monitor] Respiratory Rate Blood Pressure Blood Pressure [Right Arm] O2 Sat by Pulse 96 95 94 Oximetry 08/14/16 08/14/16 08/14/16 10:29 10:34 10:37 Temperature Pulse Rate 112 H 107 H 106 H Pulse Rate [ From Monitor] Respiratory Rate Blood Pressure Blood Pressure [Right Arm] O2 Sat by Pulse 97 96 94 Oximetry 08/14/16 08/14/16 08/14/16 10:39 10:44 10:47 Temperature Pulse Rate 106 H 112 H 107 H Pulse Rate [ From Monitor] Respiratory Rate Blood Pressure Blood Pressure [Right Arm] O2 Sat by Pulse 94 95 93 Oximetry 08/14/16 08/14/16 08/14/16 10:49 10:54 10:55 Temperature Pulse Rate 111 H 109 H 105 H Pulse Rate [ From Monitor] Respiratory Rate Blood Pressure Blood Pressure [Right Arm] O2 Sat by Pulse 94 94 94 Oximetry 08/14/16 08/14/16 08/14/16 10:59 11:04 11:09 Temperature Pulse Rate 108 H 108 H 106 H Pulse Rate [ From Monitor] Respiratory Rate Blood Pressure Blood Pressure [Right Arm] O2 Sat by Pulse 96 95 96 Oximetry 08/14/16 08/14/16 08/14/16 11:14 11:19 11:24 Temperature Pulse Rate 111 H 110 H 111 H Pulse Rate [ From Monitor] Respiratory Rate Blood Pressure Blood Pressure [Right Arm] O2 Sat by Pulse 96 95 96 Oximetry 08/14/16 08/14/16 08/14/16 11:29 11:34 11:39 Temperature Pulse Rate 119 H 113 H 105 H Pulse Rate [ From Monitor] Respiratory Rate Blood Pressure Blood Pressure [Right Arm] O2 Sat by Pulse 97 96 97 Oximetry 08/14/16 08/14/16 08/14/16 11:44 11:45 11:49 Temperature 99.4 F Pulse Rate 105 H 111 H Pulse Rate [ From Monitor] Respiratory Rate Blood Pressure Blood Pressure [Right Arm] O2 Sat by Pulse 96 97 Oximetry 01/08/14/16 08/14/16 11:54 11:59 12:04 Temperature Pulse Rate 115 H 113 H 116 H Pulse Rate [ From Monitor] Respiratory Rate Blood Pressure Blood Pressure [Right Arm] O2 Sat by Pulse 96 96 96 Oximetry 08/14/16 08/14/16 12:09 12:14 Temperature Pulse Rate 105 H 107 H Pulse Rate [ From Monitor] Respiratory Rate Blood Pressure Blood Pressure [Right Arm] O2 Sat by Pulse 96 97 Oximetry General appearance: Present: mild distress - Respiratory Respiratory effort: normal - Gastrointestinal General gastrointestinal: Present: tender - Labs CBC & Chem 7: 08/13/16 22:00 08/13/16 22:00 Labs: Abnormal lab results 08/13/16 08/13/16 08/13/16 Range/Units 21:31 22:00 22:00 WBC 19.9 H (4.5-11.0) K/mm3 RBC 3.37 L (3.65-5.03) M/mm3 Hgb 9.6 L (10.1-14.3) gm/dl Hct 29.6 L (30.3-42.9) % RDW 16.2 H (13.2-15.2) % Lymph % (Auto) 7.2 L (13.4-35.0) % Elk % (Auto) 7.7 H (0.0-7.3) % Elk # 1.5 H (0.0-0.8) K/mm3 Seg Neutrophils % 84.9 H (40.0-70.0) % Seg Neutrophils # 16.9 H (1.8-7.7) K/mm3 Sodium 135 L (137-145) mmol/L Potassium 3.5 L (3.6-5.0) mmol/L Chloride 94.0 L (98-107) mmol/L Carbon Dioxide 18 L (22-30) mmol/L Glucose 27 L* (65-100) mg/dL Total Bilirubin 1.7 H (0.1-1.2) mg/dL Albumin 3.2 L (3.9-5) g/dL Urine WBC (Auto) > 182.0 H (0.0-6.0) /HPF
--- NOTE | 2016-08-14 13:37 | Operative Report ---
HISTORY OF PRESENT ILLNESS: This is a 31-year-old woman who presents with severe left flank pain and intermittent high fevers and chills. She has moderate left hydronephrosis. Her pain is moderate and unremitting. She has been managed with 2 previous admissions with the similar issues and all options were discussed. She now has severe pain. She is 33 weeks. She wants to have a stent or percutaneous nephrostomy. These were all discussed in detail and she would like to try the stent first. PAST MEDICAL HISTORY: Negative. PAST SURGICAL HISTORY: Negative. SOCIAL HISTORY: Negative. GYNECOLOGICAL HISTORY: 5, para 4. MEDICATION: She was on antibiotics, Bactrim. ALLERGIES: Negative. REVIEW OF SYSTEMS: Left flank pain. PHYSICAL EXAMINATION: She is in no distress, but her pain is moderate. Abdomen is clearly a 30+ weeks with left flank pain. IMPRESSION: Left CVA tenderness. White count approximately 20,000, moderate hydronephrosis for stenting, possible percutaneous nephrostomy access. If that is not successful, we will try to do this under local with sedation or under spinal. This was discussed with her, informed consent given, and we will make arrangements to do later today as she is now n.p.o. JOB# [id number] LIGIA/AYAD
--- NOTE | 2016-08-14 13:41 | Anesthesia Consultation ---
Anesthesia Consult and Med Hx Date of service: 08/14/16 - Airway Anesthetic Teeth Evaluation: Good ROM Head & Neck: Adequate Mental/Hyoid Distance: Adequate Mallampati Class: Class III Intubation Access Assessment: Possibly Difficult - Pulmonary Exam CTA: Yes - Cardiac Exam Cardiac Exam: RRR - Pre-Operative Health Status ASA Pre-Surgery Classification: ASA2, Emergency Proposed Anesthetic Plan: Spinal - Pulmonary Hx Asthma: No COPD: No Hx Pneumonia: No - Cardiovascular System Hx Hypertension: No - Central Nervous System Hx Seizures: No Hx Psychiatric Problems: No - Endocrine Hx Renal Disease: No Hx End Stage Renal Disease: No Hx Hypothyroidism: No Hx Hyperthyroidism: No - Hematic Hx Anemia: Yes Hx Sickle Cell Disease: No - Other Systems Hx Alcohol Use: No - Additional Comments Anesthesia Medical History Comments: IUP at 32 weeks. Left Hydronephrosis. FHT 's 150. Plt 293. H/H 9.6/29.6
--- NOTE | 2016-08-14 13:42 | Anesthesia Day of Surgery ---
Anesthesia Day of Surgery - Day of Surgery Patient Examined: Yes Patient H&P Reviewed: Yes Patient is NPO: Yes
[2016-08-14] MEDS ORDERED: ePHEDrine SULFATE ONE (14:31)
[2016-08-14] MEDS ORDERED: WATER FOR IRRIG STERILE IR ONE (14:31)
[2016-08-14] MEDS ORDERED: NACL 0.9% 100 ML ONE (14:55)
[2016-08-14] MEDS ORDERED: NEO SYNEPHRINE ONE (14:55)
--- NOTE | 2016-08-14 15:49 | Post Anesthesia Evaluation ---
- Post Anesthesia Evaluation Patient Participated: Yes Airway Patent: Yes Stable Respiratory Function: Yes Temp > 96.8F: Yes Pain Manageable: Yes Adequeate Hydration: Yes Anesthesia Complications: No Block Receding Appropriately: Yes
--- NOTE | 2016-08-14 17:02 | Post Operative Note ---
Pre-op diagnosis: severe l hydro , infection Post-op diagnosis: same Findings: purulrnt urine LK Procedure: cysto L stnet rpg Anesthesia: regional Surgeon: DANUTA BIRD Estimated blood loss: none Pathology: list (c and s) Specimen disposition: to lab Condition: stable Disposition: PACU
--- NOTE | 2016-08-14 20:37 | Operative Report ---
PREOPERATIVE DIAGNOSIS: Severe left hydronephrosis with infection. POSTOPERATIVE DIAGNOSIS: Severe left hydronephrosis with infection. PROCEDURE: Cystoscopy, J stent, retrograde. SURGEON: Brennen Gallegos MD ANESTHESIA: Spinal. FINDINGS: This is a woman with recurrent pyelo and progressive left hydronephrosis. She now presents for stenting. The other option was percutaneous nephrostomy or observation and she wants to try the stent. DESCRIPTION OF PROCEDURE: The patient was brought to the operating room and placed on the operating table. Following induction of spinal anesthesia, placed in lithotomy position, prepped and draped in usual sterile fashion. Cystourethroscopy showed no bladder lesions. Left retrograde showed a tortuous dilated ureter down to the mid ureter. We did not see a distinct stone. We minimally gave any radiation. We covered up the baby as best as possible. We had a small amount of contrast in the collecting system and then using an open-ended catheter, a Glidewire coiled and straightened out the ureter. We placed initially a 24 cm J stent, which was not long enough. We exchanged it for a 26. The patient tolerated the procedure well. Davis was left. She was brought to recovery in stable condition. The plan would be IV antibiotics and stent removal after delivery as discussed with her mother. JOB# [id number] LIGIA/AYAD
[2016-08-15] MEDS: TYLENOL PO SCH ×2 (03:16→09:19)
[2016-08-15] MEDS: LACTATED RINGERS 1,000 ML IV SCH ×3 (03:17→15:57)
[2016-08-15] MEDS: ZOSYN/NS 4.5GM/100ML 100 ML IV SCH (03:44)
--- NOTE | 2016-08-15 07:26 | Progress Note ---
Assessment and Plan - Patient Problems (1) Acute pyelonephritis in third trimester, antepartum Diagnosis Date: 07/14/16 Current Visit: No Status: Suspected (2) 33 weeks gestation of Diagnosis Date: 08/15/16 Current Visit: Yes Status: Acute Plan to address problem: A: IUP @ 33 1/7 weeks Recurrent pyelonephritis - on IV Zosyn Left hydronephrosis - s/p stent placement P: Continue current management Appreciate ID consultation Appreciate Urology consultation Awaiting blood/urine cultures Subjective - Subjective Date of service: 08/15/16 Principal diagnosis: IUP at 33 1/7 weeks, Recurrent Pyelo, Left hydronephrosis - s/p stent place Interval history: Pt is feeling well without complaints. Pain improved with stent placement. She denies contractions or bleeding. Patient reports: movement normal, no new complaints, no loss of fluid, no vaginal bleeding, no contractions Objective - Vital Signs Vital Signs: Vital Signs - 12hr 08/14/16 08/14/16 08/14/16 19:26 19:31 19:32 Temperature Pulse Rate 102 H 107 H 102 H Respiratory Rate Blood Pressure 89/54 O2 Sat by Pulse 99 98 Oximetry 08/14/16 08/14/16 08/14/16 19:36 19:41 19:42 Temperature 97.8 F Pulse Rate 114 H 104 H Respiratory 18 Rate Blood Pressure O2 Sat by Pulse 98 98 Oximetry 08/14/16 08/14/16 08/14/16 19:46 19:51 19:56 Temperature Pulse Rate 104 H 106 H 102 H Respiratory Rate Blood Pressure O2 Sat by Pulse 97 97 99 Oximetry 08/14/16 08/14/16 08/14/16 20:01 20:06 21:17 Temperature 97.4 F L Pulse Rate 111 H 101 H Respiratory Rate Blood Pressure 109/55 O2 Sat by Pulse 98 98 Oximetry 08/15/16 08/15/16 08/15/16 03:33 03:34 03:38 Temperature Pulse Rate 114 H 114 H 119 H Respiratory Rate Blood Pressure 98/51 O2 Sat by Pulse 95 94 Oximetry 08/15/16 08/15/16 08/15/16 03:42 03:43 03:48 Temperature 99.4 F Pulse Rate 129 H 115 H Respiratory Rate Blood Pressure O2 Sat by Pulse 94 95 Oximetry 08/15/16 08/15/1617 03:50 03:53 03:55 Temperature Pulse Rate 118 H 118 H 112 H Respiratory Rate Blood Pressure O2 Sat by Pulse 94 95 94 Oximetry 08/15/16 08/15/16 08/15/16 03:58 04:00 04:01 Temperature 97.8 F Pulse Rate 114 H 114 H Respiratory Rate Blood Pressure O2 Sat by Pulse 95 94 Oximetry 08/15/16 08/15/16 08/15/16 04:03 04:08 04:13 Temperature Pulse Rate 112 H 115 H 114 H Respiratory Rate Blood Pressure O2 Sat by Pulse 96 95 96 Oximetry 08/15/16 08/15/16 08/15/16 04:16 04:18 04:31 Temperature Pulse Rate 108 H 109 H 107 H Respiratory Rate Blood Pressure O2 Sat by Pulse 94 94 96 Oximetry - Exam Cardiovascular: Regular rate Lungs: Clear to auscultation Abdomen: Present: normal appearance, soft, tenderness (left CVAT) Uterus: Present: normal FHR: category 1 Uterine Contraction Monitor Mode: External - Labs Labs: Abnormal Labs 08/13/16 08/13/16 08/13/16 21:31 22:00 22:00 WBC 19.9 H RBC 3.37 L Hgb 9.6 L Hct 29.6 L RDW 16.2 H Lymph % (Auto) 7.2 L Nobles % (Auto) 7.7 H Nobles # 1.5 H Seg Neutrophils % 84.9 H Seg Neutrophils # 16.9 H Sodium 135 L Potassium 3.5 L Chloride 94.0 L Carbon Dioxide 18 L Glucose 27 L* Total Bilirubin 1.7 H Albumin 3.2 L Urine WBC (Auto) > 182.0 H Laboratory Results - last 24 hr 08/13/16 22:00 Blood Type O POSITIVE Antibody Screen Negative
--- NOTE | 2016-08-15 09:09 | Fluoroscopy Report ---
FLUOROSCOPY RETROGRADE UROGRAPHY: HISTORY: Left hydronephrosis, patient is 33 weeks . FINDINGS: Fluoroscopy was provided by radiology during retrograde urography by Dr. Gallegos. 3 fluoroscopic images were captured. The images demonstrate mild dilatation of the left renal collecting system with subsequent placement of a left ureteral stent which adequately drains the left collecting system. Please correlate with the procedural report by Dr. Gallegos. IMPRESSION: Left hydronephrosis. Left ureteral stent placement.
--- NOTE | 2016-08-15 09:12 | Progress Note ---
Assessment and Plan no pain catheter out ok for discharge on po antibiotics per ob needs stent out post delivery pt and mom fully aware Subjective Date of service: 08/15/16 Principal diagnosis: IUP at 33 1/7 weeks, Recurrent Pyelo, Left hydronephrosis - s/p stent place Objective - Constitutional Vitals: Vital Signs - 12hr 08/14/16 08/15/16 08/15/16 21:17 03:33 03:34 Temperature 97.4 F L Pulse Rate 114 H 114 H Blood Pressure 98/51 O2 Sat by Pulse 95 Oximetry 08/15/16 08/15/16 08/15/16 03:38 03:42 03:43 Temperature 99.4 F Pulse Rate 119 H 129 H Blood Pressure O2 Sat by Pulse 94 94 Oximetry 08/15/16 08/15/16 08/15/16 03:48 03:50 03:53 Temperature Pulse Rate 115 H 118 H 118 H Blood Pressure O2 Sat by Pulse 95 94 95 Oximetry 08/15/16 08/15/16 08/15/16 03:55 03:58 04:00 Temperature 97.8 F Pulse Rate 112 H 114 H Blood Pressure O2 Sat by Pulse 94 95 Oximetry 08/15/16 08/15/16 08/15/16 04:01 04:03 04:08 Temperature Pulse Rate 114 H 112 H 115 H Blood Pressure O2 Sat by Pulse 94 96 95 Oximetry 08/15/16 08/15/16 08/15/16 04:13 04:16 04:18 Temperature Pulse Rate 114 H 108 H 109 H Blood Pressure O2 Sat by Pulse 96 94 94 Oximetry 08/15/16 04:31 Temperature Pulse Rate 107 H Blood Pressure O2 Sat by Pulse 96 Oximetry General appearance: Present: no acute distress - Respiratory Respiratory effort: normal - Labs CBC & Chem 7: 08/13/16 22:00 08/13/16 22:00
--- NOTE | 2016-08-15 09:56 | Progress Note ---
Subjective Date of service: 08/15/16 Principal diagnosis: IUP at 33 1/7 weeks, Recurrent Pyelo, Left hydronephrosis - s/p stent place Interval history: 1st POD after stent placement Patient is in the bed, comfortable. Ambulated well. Pain is well controlled with pain meds. No residual neurological deficit. No anesthesia complications Objective - Constitutional Vitals: Vital Signs - 12hr 08/15/16 08/15/16 08/15/16 03:33 03:34 03:38 Temperature Pulse Rate 114 H 114 H 119 H Pulse Rate [ From Monitor] Respiratory Rate Blood Pressure 98/51 Blood Pressure [Right Arm] O2 Sat by Pulse 95 94 Oximetry 08/15/16 08/15/16 08/15/16 03:42 03:43 03:48 Temperature 99.4 F Pulse Rate 129 H 115 H Pulse Rate [ From Monitor] Respiratory Rate Blood Pressure Blood Pressure [Right Arm] O2 Sat by Pulse 94 95 Oximetry 08/15/16 08/15/16 08/15/16 03:50 03:53 03:55 Temperature Pulse Rate 118 H 118 H 112 H Pulse Rate [ From Monitor] Respiratory Rate Blood Pressure Blood Pressure [Right Arm] O2 Sat by Pulse 94 95 94 Oximetry 08/15/16 08/15/16 08/15/16 03:58 04:00 04:01 Temperature 97.8 F Pulse Rate 114 H 114 H Pulse Rate [ From Monitor] Respiratory Rate Blood Pressure Blood Pressure [Right Arm] O2 Sat by Pulse 95 94 Oximetry 08/15/16 08/15/16 08/15/16 04:03 04:08 04:13 Temperature Pulse Rate 112 H 115 H 114 H Pulse Rate [ From Monitor] Respiratory Rate Blood Pressure Blood Pressure [Right Arm] O2 Sat by Pulse 96 95 96 Oximetry 08/15/16 08/15/16 08/15/16 04:16 04:18 04:31 Temperature Pulse Rate 108 H 109 H 107 H Pulse Rate [ From Monitor] Respiratory Rate Blood Pressure Blood Pressure [Right Arm] O2 Sat by Pulse 94 94 96 Oximetry 08/15/16 08/15/16 08/15/16 09:25 09:30 09:31 Temperature 95.1 F L Pulse Rate 76 70 70 Pulse Rate [ 72 From Monitor] Respiratory 20 Rate Blood Pressure 93/50 Blood Pressure 93/50 [Right Arm] O2 Sat by Pulse 99 99 Oximetry 08/15/16 08/15/16 08/15/16 09:35 09:40 09:45 Temperature Pulse Rate 65 66 68 Pulse Rate [ From Monitor] Respiratory Rate Blood Pressure Blood Pressure [Right Arm] O2 Sat by Pulse 99 97 97 Oximetry 08/15/16 09:50 Temperature Pulse Rate 64 Pulse Rate [ From Monitor] Respiratory Rate Blood Pressure Blood Pressure [Right Arm] O2 Sat by Pulse 98 Oximetry - Labs CBC & Chem 7: 08/13/16 22:00 08/13/16 22:00
[2016-08-15] MEDS: PRENATAL VITAMIN PO SCH (10:01)
[2016-08-15] MEDS: D5LR 1,000 ML IV SCH (10:23)
--- NOTE | 2016-08-15 10:25 | Progress Note ---
Assessment and Plan Current antibiotics: Zosyn 4.5 grams IV q8h 08/14 --> Previous antibiotics: Bactrim in May and June ASSESSMENT: Araceli Rodirguez is a pleasant 31 year old woman who is 33 weeks gestation who was admitted to [facility] L&D on 08/13/16 with left flank pain, fevers, nausea and vomiting and was found to have pyuria and left sided hydronephrosis. Problem list: 1. Complicated UTI/pyelonephritis -IUP with 33 weeks gestation -Left hydronephrosis. -Status post left ureteral stenting 08/14 -Urine cultures with no growth to date but has had a very sensitive Proteus mirabilis previously on 06/06 & 07/13. -Clinically improved 2. Leukocytosis -Secondary to #1 3. Left hydronephrosis -Status post left ureteral stenting 08/14 PLAN: 1. Will change to PO ampicillin with patient not bacteremic and clinically stable 2. OK to discharge from infectious diseases point of view. 3. Would continue ampicillin 500mg po TID X 10 days 4. Follow WBC Gonzalez Bazan MD [facility] Office: [phone] Subjective Date of service: 08/15/16 Principal diagnosis: IUP at 33 1/7 weeks, Recurrent Pyelo, Left hydronephrosis - s/p stent place Interval history: Feels "much better." No further flank pain and no subjective fever or chills. No nausea, vomiting or diarrhea. Tolerating diet well. Objective - Exam Narrative Exam: GENERAL: Well-developed, well-nourished appearing female who is alert and in no acute distress. HEAD: Normocephalic. No lesions seen. EYES: Pupils are equal reactive to light and accommodation. There is no scleral icterus. Optic fundi are not examined. EARS: Tympanic membranes are normal. THROAT: Oropharynx is normal with no evidence of oral candidiasis or pharyngitis. NECK: Supple. No enlargement of the thyroid gland. No significant cervical lymphadenopathy. No jugular venous distention at 30. LUNGS: Clear with no adventitious sounds. HEART: Regular rate. S1 and S2 are normal. There are no murmurs, gallops, clicks or rubs heard. ABDOMEN: Soft and nontender. 37 week fundus. Liver and spleen are not palpably enlarged or tender. No palpable masses. Bowel sounds are normoactive. EXTREMITIES: No peripheral lymphadenopathy, clubbing or edema. SKIN: Several tattoos. No rash. : Not examined NEUROLOGIC: No focal findings. - Constitutional Vitals: Vital Signs Temp Pulse Resp BP Pulse Ox 95.1 F L 68 20 93/50 97 08/15/16 09:30 08/15/16 10:20 08/15/16 09:30 08/15/16 09:31 08/15/16 10:20 Temperature -Last 24 Hours Temperature 95.1 F Temperature 97.8 F Temperature 99.4 F Temperature 97.4 F Temperature 97.8 F Temperature 97.6 F Temperature 97.3 F Temperature 97.3 F Temperature 99.4 F - Labs CBC & Chem 7: 08/13/16 22:00 08/13/16 22:00 Labs: Microbiology 08/14/16 Unknown Urine,Kidney - Left Kidney Urine Culture - Preliminary NO GROWTH AFTER 24 HOURS 08/14/16 Unknown Urine,Catheterized - Cytoscopic/Bilateral Urine Culture - Preliminary NO GROWTH AFTER 24 HOURS 08/14/16 07:57 Peripheral/Venous Blood Culture - Preliminary NO GROWTH AFTER 24 HOURS 08/14/16 07:19 Peripheral/Venous Blood Culture - Preliminary NO GROWTH AFTER 24 HOURS 08/13/16 21:31 Urine,Clean Catch Urine Culture - 10-100,000 mixed geno suggestive of contamination Microbiology 07/13/16 01:00 Urine,Catheterized - Straight Catheter Urine Culture - Final Proteus Mirabilis (resistant only to tetracycline) 06/06/16 Unknown Urine,Catheterized - Straight Catheter Urine Culture - Final Proteus Mirabilis (resistant only to tetracycline)
--- NOTE | 2016-08-15 11:05 | Query-Infection ---
"Dear Date:08/15/16 Veterinary Microbiologist/CDS:Kraig Berman Phone#: Exercise your independent professional judgment when responding to this query. Questions asked do not imply a particular answer is desired or expected. We greatly appreciate your clarification on this issue. Clinical Documentation States: 31 y/o f admitted 08/14/16 with pyelonephritis and UTI. Patient is 32 weeks . Patient underwent cystoscopy and stent placement. ID saw patient and placed patient on Zosyn and ordered blood and urine cultures. Clinical findings show: (please check applicable parameters) Infection, known /suspected, with some of the following indicators; Specify the infection:acute pyelonephritis and UTI 3 General parameters [x] Fever (core temp >38.30C or 100.40F) [ ] Hypothermia (core temp <36C) [x] Heart rate >90 bpm [ ] Tachypnea: >20 bpm or pCO2 < 32 mmHg [ ] Altered mental status [ ] Significant edema / +ve fluid balance (>20 ml/kg 24 h) [ ] Hyperglycemia (Bl. glucose >110 mg/dl) w/o diabetes Inflammatory parameters [x] Leukocytosis (white blood cell count >12,000/l) [ ] Leukopenia (white blood cell count <4,000/l) [ ] Bandemia (immature WBC > 10%) [x] Leucocyte Left Shift [ ] Plasma procalcitonin>2 SD above the normal value Hemodynamic and tissue perfusion parameters [ ] Arterial hypotension(SBP <90 mmHg, MAP <70 mmHg,or a SBP drop >40 mmHg in adults) [ ] Hyperlactatemia (>3 mmol/l) [ ] Anion Gap (> 11mEG/l) [ ] Decreased capillary refill or mottling Organ dysfunction parameters [ ] Arterial hypoxemia (PaO2/FIO2 <300) [ ] Creatinine increase =0.5 mg/dl [ ] Acute oliguria (urine output <0.5 ml | kg |h or 45 mM/l for at least 2 hrs) [ ] Coagulation abnormalities (INR >1.5 or activated partial thromboplastin time >60 s) [ ] Ileus (absent armin wel sounds) [ ] Thrombocytopenia (platelet count <100,000/l) [ ] Hyperbilirubinemia (plasma total bilirubin >4 mg/dl) According to the clinical indications above, can Bacteremia be further specified? If so, please indicate below and in your Progress Notes and/ or Discharge Summary. Indicate if the condition was present on admission. PHYSICIAN RESPONSE: [ ] Sepsis [ ] Severe Sepsis [ ] Septic Shock [ ] Septicemia [ ] Sepsis now resolved [ ] SIRS due to non-infectious cause with organ dysfunction [ ] SIRS due to non-infectious cause without organ dysfunction [ ] Other: [ ] Comment/Explanation: Present on Admission: [ ] Yes (Y) [ ] Clinically undeterminable (W) [ ] No ( N) [ ] Ruled Out Please also document response in your Progress Notes and/or Discharge Summary and indicate if the condition was present on admission Notes: SIRS/ SIRS WITH ORGAN DYSFUNCTION Systemic inflammatory response syndrome (SIRS) generally refers to the systemic response to trauma/torres or other insult such as Acute Myocardial Infarction, Acute Pancreatitis, and Major Surgery with symptoms including fever, tachycardia , tachypnea, and leukocytosis (1). BACTEREMIA Presence of viable bacteria in the circulating blood (2). This term is reserved for patients that do not manifest above SIRS response. SEPTICEMIA Generally refers to a systemic disease associated with the presence of pathological microorganisms or toxins in the blood, which can include bacteria, viruses, fungi or other organisms (1). SEPSIS Generally refers to SIRS due infection (1). SEVERE SEPSIS Generally refers to sepsis associated with acute organ dysfunction (1). SEPTIC SHOCK Generally refers to circulatory failure associated with severe sepsis (2), and defined as hypotension or hypoperfusion despite adequate fluid resuscitation (1 hour) (3). REFERENCES: 1. [place] [employer]/Society of Critical Care Medicine Consensus Conference. Definitions for sepsis and organ failure and guidelines for the use of innovative therapies in sepsis. Critical Care Med 1992;20:864 - 74. 2. Rafal najera MM, Mike MP, Duncan PEMA, Kevin E, Wilmer D, Jimmie D, Reagan J, Cecilia SM , Channing TORIBIO, Nathaly G; International Sepsis Definitions Conference. 2001 SCCM/ESICM/ACCP/ATS/SIS International Sepsis Definitions Conference. Intensive Care Med. 2002 Apr;29(4):530-8. Epub 2002Oct 21. Review. PubMed PMID:[id number] 3. ICD-9-CM Official Guidelines for Coding and Reporting 4. Medscape Drugs, Diseases and Procedures references 5. Harrisons Textbook of Internal Medicine. 18th Edition MTDD"
[2016-08-15] MEDS ORDERED: POLYCILLIN PO SCH (12:00)
[2016-08-15 16:59] LABS: Hematocrit 23.6 % (30.3-42.9); Hemoglobin 7.9 gm/dl (10.1-14.3); Mean Corpuscular HGB Conc 34 % (30-34); Mean Corpuscular Hemoglobin 29 pg (28-32); Mean Corpuscular Volume 87 fl (79-97); Platelet Count 255 K/mm3 (140-440); Red Cell Distribution Width 16.5 % (13.2-15.2); White Blood Count 9.1 K/mm3 (4.5-11.0)
[2016-08-15 18:24] VITALS: BP 96/50
--- NOTE | 2016-08-15 18:46 | Discharge Summary ---
Providers - Providers Date of Admission: 08/14/16 08:52 Date of discharge: 08/15/16 Attending physician: ORLY KEY 08/14/16 00:03 Consult to Physician [CONS] Routine Consulting Provider: THEODORE VALENZUELA Reason For Exam: Recurrent Pyelonephritis at [address] consult to:: DR VALENZUELA Notified:: ANSWER SERVICE Phone number called:: [phone] 08/14/16 06:47 Consult to Physician [CONS] Routine Consulting Provider: DANUTA BIRD Reason For Exam: Left hydronephrosis Place consult to:: NEPHROLOGY Notified:: OFFICE Phone number called:: [phone] Was contact made?: Yes If yes, spoke with:: Time called:: 17:11 Comment:: YESI CRAWLEY SPOKE WITH Primary care physician: ORLY KEY Hospitalization Reason for admission: IUP - , other (Recurrent pyleonephritis; Left hydronephrosis) Procedure: other (Cystoscopy and ureteral stent placement) Other procedures: none complications: none Discharge diagnosis: other (IUP @ 33 1/7 weeks; Pyelonephritis - resolved) Hospital course: Pt is a 31 year old woman who is 33 weeks and is re-admitted to [facility] L&D on 08/13/16 with left flank pain, fevers, nausea and vomiting and was found to have pyuria and left sided hydronephrosis. She is s/p a left ureteral stenting 08/14/16 and is currently feeling much better. Her urine cultures showed no growth to date, but has had a very sensitive Proteus mirabilis previously on 06/06/16 & 07/13/16. Since she is clinically improved, and was cleared for discharge by Urology and ID. She will therefore be discharged to home on Ampicillin 500mg po TID X 10 days. Condition at discharge: Good Disposition: DISCHARGED TO HOME OR SELFCARE - Discharge Diagnoses (1) Acute pyelonephritis in third trimester, antepartum Status: Suspected (2) 33 weeks gestation of Status: Acute Plan - Discharge Medications Prescriptions: Ampicillin [Polycillin] 500 mg PO Q8HR #30 capsule - Provider Discharge Summary Activity: routine, no sex for 6 weeks, no heavy lifting 4 weeks, no strenuous exercise Diet: routine Instructions: routine Additional instructions: [] Smoking cessation referral if applicable(refer to patient education folder for contact #) [] Refer to [facility]'s [facility] Booklet Call your doctor immediately for: * Fever > 100.5 * Heavy vaginal bleeding ( >1 pad per hour) * Severe persistent headache * Shortness of breath * Reddened, hot, painful area to leg or breast * Drainage or odor from incision. * Keep incision clean and dry at all times and follow doctor's instructions regarding bathing/showering
== END 2016-08-15 19:26 | disposition home or self-care (01) | DRG 781 ==
LOC: TRG 21:07 → LD 23:41 → OBSVTOIN 08-14 08:52
PROVIDERS: ADMIT Obstetrics & Gynecology Gynecology; ATTEND Obstetrics & Gynecology Gynecology
PROC: 0T778DZ Dilation of Left Ureter with Intraluminal Device, Via Natural or Artificial Opening Endoscopic (ICD-10-PCS; principal; 2016-08-14)
DX: O98.813 Other maternal infectious and parasitic diseases complicating pregnancy, third trimester (principal); A41.9 Sepsis, unspecified organism; O23.03 Infections of kidney in pregnancy, third trimester; O23.43 Unspecified infection of urinary tract in pregnancy, third trimester; N13.6 Pyonephrosis; O26.893 Other specified pregnancy related conditions, third trimester; Z3A.33 33 weeks gestation of pregnancy
CPT/HCPCS: 36415; 74420; 76770; 76815; 76819; 80053; 81001; 82962; 85025; 85027; 86850; 86900; 86901; 87040; 87086; 87806; A4217; C1758; C1769; C2617; G0378; J0696; J2370; J2405; J2543; J7120; J7121; Q9967

== ENCOUNTER 2016-08-31 23:42 | Outpatient (CLI) | payer MEDICAID ==
[2016-08-31] MEDS ORDERED: LACTATED RINGERS 1,000 ML ONE (23:45)
[2016-08-31] MEDS ORDERED: LACTATED RINGERS 500 ML IV ONE (23:47)
[2016-08-31 23:55] VITALS: BP 114/72
[2016-09-01 00:20] LABS: Bilirubin,Urine NEG (Negative); Blood,Urine MOD (Negative); Ketones,Urine NEG (Negative); Leukocyte Esterase,Urine LG (Negative); Mucus,Urine 1+ /HPF; Nitrite,Urine NEG (Negative)
== END 2016-09-01 01:00 | disposition home or self-care (01) ==
LOC: TRG 23:42
PROVIDERS: ATTEND Obstetrics & Gynecology
DX: O47.9 False labor, unspecified (principal); Z3A.00 Weeks of gestation of pregnancy not specified
CPT/HCPCS: 81001; 96360; J7120

== ENCOUNTER 2016-10-02 23:45 | Outpatient (CLI) | payer MEDICAID ==
[2016-10-03 00:28] VITALS: BP 122/73
== END 2016-10-03 01:15 | disposition home or self-care (01) ==
LOC: TRG 23:45
PROVIDERS: ATTEND Obstetrics & Gynecology
DX: O48.0 Post-term pregnancy (principal); Z3A.40 40 weeks gestation of pregnancy
CPT/HCPCS: 59025

== ENCOUNTER 2016-10-22 09:11 | Day surgery (SDC) | payer MEDICAID ==
[~2016-10-22 09:11] MED LIST: NACL 0.9% 1000 ML 1,000 ML IV SCH; OMNIPAQUE 300 MG/50 ML (CATH LAB) IV ONE; PEPCID PO NR; VERSED IV NR; WATER FOR IRRIG STERILE IR ONE
[2016-10-22 10:01] LABS: Basophils % (Auto) 0.4 % (0.0-1.8); Eosinophils % (Auto) 1.1 % (0.0-4.3); Hematocrit 39.5 % (30.3-42.9); Hemoglobin 12.7 gm/dl (10.1-14.3); Mean Corpuscular HGB Conc 32 % (30-34); Mean Corpuscular Hemoglobin 28 pg (28-32); Mean Corpuscular Volume 86 fl (79-97); Platelet Count 256 K/mm3 (140-440); Red Blood Count 4.57 M/mm3 (3.65-5.03); Red Cell Distribution Width 15.4 % (13.2-15.2); White Blood Count 9.4 K/mm3 (4.5-11.0)
[2016-10-22 10:20] LABS: Anion Gap 15 mmol/L; BUN/Creatinine Ratio 28.33; Blood Urea Nitrogen 17 mg/dL (7-17); Carbon Dioxide 24 mmol/L (22-30); Chloride 104.2 mmol/L (98-107); Glucose 96 mg/dL (65-100); Potassium 4.1 mmol/L (3.6-5.0); Sodium 139 mmol/L (137-145)
--- NOTE | 2016-10-22 10:35 | Anesthesia Consultation ---
Anesthesia Consult and Med Hx Date of service: 10/22/16 - Airway Anesthetic Teeth Evaluation: Good ROM Head & Neck: Adequate Mental/Hyoid Distance: Adequate Mallampati Class: Class I Intubation Access Assessment: Good - Pulmonary Exam CTA: Yes - Cardiac Exam Cardiac Exam: RRR - Pre-Operative Health Status ASA Pre-Surgery Classification: ASA2 Proposed Anesthetic Plan: General - Pre-Anesthesia Comment Pre-Anesthesia Comments: 2 weeks , formula feeding. - Pulmonary Hx Smoking: Yes - Endocrine Hx Renal Disease: Yes (kidney stent placed 08/14/2016)
--- NOTE | 2016-10-22 10:35 | Anesthesia Day of Surgery ---
Anesthesia Day of Surgery - Day of Surgery Patient Examined: Yes Patient H&P Reviewed: Yes Patient is NPO: Yes
[2016-10-22] MEDS ORDERED: ZOFRAN IV PRN (10:49)
[2016-10-22] MEDS ORDERED: NORCO 5/325 PO PRN (10:49)
[2016-10-22] MEDS ORDERED: ANCEF/STERILE WATER 2 GM/20 ML 2 GM/20 ML SYRINGE IV NR (11:00)
[2016-10-22] MEDS ORDERED: DIPRIVAN 10 MG/ML IV ONE ×2 (11:31→13:23)
[2016-10-22] MEDS ORDERED: SUBLIMAZE ONE (11:31)
[2016-10-22] MEDS ORDERED: XYLOCAINE MPF 2% ONE (11:33)
[2016-10-22] MEDS ORDERED: GARAMYCIN/NS 80 MG/100 ML 100 ML IV NR (12:24)
[2016-10-22] MEDS ORDERED: DECADRON ONE (13:04)
[2016-10-22] MEDS ORDERED: ZOFRAN ONE (13:04)
--- NOTE | 2016-10-22 14:15 | Post Operative Note ---
Date of procedure: 10/22/16 Pre-op diagnosis: left ureteral stone retained stent Post-op diagnosis: same Findings: as above Procedure: cysto l rpg l ureteroscopy stnets Anesthesia: GETA Surgeon: DANUTA BIRD Estimated blood loss: none Pathology: list (stobe) Specimen disposition: given to patient/family Condition: stable Disposition: PACU
--- NOTE | 2016-10-22 14:16 | Discharge Summary ---
Short Stay Discharge Plan Activity: other (no straoining ) Weight Bearing Status: Full Weight Bearing Diet: low fat, low cholesterol, low salt Special Instructions: other (inc fluids ) Durable Medical Equipment Needed Upon Discharge: other (j stent ) Follow up with: MARTHA BETANCOURT MD [Primary Care Provider] - 7 Days DANUTA BIRD MD [Staff Physician] - 7 Days
--- NOTE | 2016-10-22 14:28 | Operative Report ---
PREOPERATIVE DIAGNOSES: Retained stent, left ureteral stone. POSTOPERATIVE DIAGNOSES: Retained stent, left ureteral stone. PROCEDURE: Cystoscopy, left retrograde, left flexible ureteroscopy with laser of stone, laser some calcium around the stent, removal of stent, stent exchange, and reinsertion of stent. SURGEON: Brennen Gallegos MD ANESTHESIA: General. FINDINGS: This is a woman who just delivered a baby, we tried to remove her stent and then we called the radiology, there was a stone in the ureter. She now presents for stone removal and stent exchange. We tried to remove the stent in the office, it would not come out. DESCRIPTION OF PROCEDURE: The patient was brought to the operating room and placed on the operating table. Following induction of anesthesia, placed in lithotomy position, prepped and draped in usual sterile fashion. The stent was clearly just above the stone in the upper ureter. It was still coiled. Wire coiled up in the kidney. Flexible ureteroscopy showed the stone, which was about 7 mm, which was lasered into multiple fragments. Once we got that, there was some debris around the loop of the stent, which was lasered. We then left the ureteroscope once we got into the kidney and we were able to remove the stent. The patient tolerated the procedure well. No complications. The first stone was in about 8-10 pieces. At this point, a small piece will be given to the patient. We did not extract, it came out from irrigation. A 24 cm 6-Anguillan stent coiled in the kidney and bladder. The patient tolerated the procedure well. No significant complications, brought to recovery in stable condition. There was no family to talk. JOB# [id number] LIGIA/AYAD
[2016-10-22] MEDS: DILAUDID IV PRN ×2 (14:29→14:40)
--- NOTE | 2016-10-22 14:44 | Fluoroscopy Report ---
Retrograde pyelogram: An internal stent is initially present. No opaque calculus noted. The stent apparently is removed. A ureteroscope was passed with injection of contrast into the renal pelvis filling most of the collecting system. There are multiple lucencies in several of the peripheral calyces however some of these are visualized on end and may give false appearance of true filling defect. The largest is in a peripheral upper pole calyx and consistent with recent CT visualized calculus. No other findings noted.
[2016-10-22 15:34] VITALS: BP 113/75
== END 2016-10-22 16:15 | disposition home or self-care (01) ==
LOC: OR 09:11
PROVIDERS: ATTEND Urology
DX: N20.1 Calculus of ureter (principal); Z87.891 Personal history of nicotine dependence; Z96.0 Presence of urogenital implants
CPT/HCPCS: 36415; 52356; 74420; 80048; 81025; 85025; A4217; C1758; C1769; C2617; J0690; J1100; J1170; J1580; J2250; J2405; J2704; J3010; J7030; Q9967

== ENCOUNTER 2016-12-10 08:37 | Day surgery (SDC) | payer MEDICAID ==
--- NOTE | 2016-12-10 08:02 | Short Stay Summary ---
Short Stay Documentation Date of service: 12/10/16 Narrative H&P: Pt is a 31yo WF s/p 10/08/16 presents for permanent sterilization - History Principal diagnosis: Desires permanent sterilization H&P: obtained from office Past Medical History: other (hydronephrosis with stents placed during , and removed post delivery) Past Surgical History: Other (ureteral stent placement) Social history: no significant social history, single, smoking - Allergies and Medications Current Medications: Allergies No Known Allergies Allergy (Verified 12/04/16 12:27) Home Medications Medication Instructions Recorded Confirmed Last Taken Type No Known Home Medications [No 12/04/16 12/04/16 Unknown History Reported Home Medications] - Physical exam General appearance: no acute distress Integumentary: no rash HEENT: Atraumatic Lungs: Clear to auscultation Breasts: deferred Heart: Regular rate Gastrointestinal: normal Female Genitourinary: deferred Rectal Exam: deferred Extremities: No edema Neurological: Normal speech - Brief post op/procedure progress note Date of procedure: 12/10/16 Pre-op diagnosis: Desires permanent sterilization Post-op diagnosis: same Procedure: Laproscopic Bilateral Tubal Ligation Anesthesia: GETA Findings: Normal uterus. Normal tubes and ovaries bilaterally. Surgeon: MARTHA BETANCOURT Estimated blood loss: minimal Pathology: none Condition: stable - Hospital course Hospital course: Unremarkable. - Disposition Condition at discharge: Good Disposition: DISCHARGED TO HOME OR SELFCARE - Discharge Diagnoses (1) Contraception management Status: Resolved Qualifiers: Contraceptive encounter type: sterilization IUD management: I Contraceptive type: C Qualified Code(s): Z30.2 - Encounter for sterilization Short Stay Discharge Plan Activity: no restrictions Diet: regular Wound: open to air, keep clean and dry Follow up with: MARTHA BETANCOURT MD [Primary Care Provider] - 14 Days Prescriptions: HYDROcodone/APAP 5-325 [[place] 5/325] 1 each PO Q6HR PRN #20 tablet PRN Reason: Pain
[~2016-12-10 08:37] MED LIST changes: +MARCAINE 0.5% INFILTRATI ONE; -NACL 0.9% 1000 ML 1,000 ML IV SCH; +NACL 0.9% IR ONE; -OMNIPAQUE 300 MG/50 ML (CATH LAB) IV ONE; -PEPCID PO NR; -VERSED IV NR; -WATER FOR IRRIG STERILE IR ONE
[2016-12-10] MEDS ORDERED: LACTATED RINGERS 1,000 ML IV SCH (10:00)
[2016-12-10] MEDS ORDERED: VERSED IV NR (10:00)
[2016-12-10] MEDS ORDERED: PEPCID PO NR (10:00)
[2016-12-10] MEDS ORDERED: SUBLIMAZE ONE (10:02)
[2016-12-10] MEDS ORDERED: DIPRIVAN 10 MG/ML IV ONE (10:03)
[2016-12-10] MEDS ORDERED: MARCAINE 0.5% 30 ML INFILTRATI ONE (10:15)
[2016-12-10] MEDS ORDERED: PEPCID ONE (10:20)
[2016-12-10] MEDS ORDERED: VERSED ONE (10:20)
[2016-12-10] MEDS ORDERED: ANCEF/STERILE WATER 2 GM/20 ML 2 GM/20 ML SYRINGE IV NR (10:30)
[2016-12-10] MEDS ORDERED: XYLOCAINE MPF 2% ONE (10:33)
[2016-12-10 10:44] LABS: Hematocrit 36.6 % (30.3-42.9); Mean Corpuscular HGB Conc 33 % (30-34); Mean Corpuscular Hemoglobin 28 pg (28-32); Mean Corpuscular Volume 85 fl (79-97); Platelet Count 242 K/mm3 (140-440); Red Blood Count 4.31 M/mm3 (3.65-5.03); Red Cell Distribution Width 13.8 % (13.2-15.2); White Blood Count 7.3 K/mm3 (4.5-11.0)
[2016-12-10 10:53] LABS: Blood Urea Nitrogen 12 mg/dL (7-17); Carbon Dioxide 25 mmol/L (22-30); Chloride 105.8 mmol/L (98-107); Glucose 86 mg/dL (65-100); Sodium 142 mmol/L (137-145)
[2016-12-10 11:00] LABS: Anion Gap 16 mmol/L; Potassium 4.7 mmol/L (3.6-5.0)
[2016-12-10] MEDS ORDERED: MARCAINE 0.5% INFILTRATI ONE (11:00)
[2016-12-10] MEDS ORDERED: NACL 0.9% IR ONE (11:00)
[2016-12-10] MEDS ORDERED: ZOFRAN ONE (11:19)
[2016-12-10] MEDS ORDERED: TORADOL ONE (11:19)
[2016-12-10] MEDS ORDERED: ZEMURON IV ONE (11:19)
--- NOTE | 2016-12-10 11:27 | Anesthesia Day of Surgery ---
Anesthesia Day of Surgery - Day of Surgery Patient Examined: Yes Patient H&P Reviewed: Yes Patient is NPO: Yes
--- NOTE | 2016-12-10 11:27 | Anesthesia Consultation ---
Anesthesia Consult and Med Hx Date of service: 12/10/16 - Airway Anesthetic Teeth Evaluation: Good ROM Head & Neck: Adequate Mental/Hyoid Distance: Adequate Mallampati Class: Class I - Pulmonary Exam CTA: Yes - Cardiac Exam Cardiac Exam: RRR - Pre-Operative Health Status ASA Pre-Surgery Classification: ASA2 Proposed Anesthetic Plan: General - Pulmonary Hx Smoking: Yes Hx Asthma: No COPD: No Hx Pneumonia: No Hx Sleep Apnea: No (PETER PRE SCREEN LOW RISK) - Cardiovascular System Hx Hypertension: No - Central Nervous System Hx Seizures: No Hx Psychiatric Problems: No - Endocrine Hx Renal Disease: Yes (kidney stent placed 08/14/2016) Hx End Stage Renal Disease: No Hx Hypothyroidism: No Hx Hyperthyroidism: No - Hematic Hx Anemia: Yes (ON DAILY IRON) Hx Sickle Cell Disease: No - Other Systems Hx Alcohol Use: No Hx Cancer: No
[2016-12-10] MEDS ORDERED: NEOSTIGMINE ONE (11:28)
[2016-12-10] MEDS ORDERED: ROBINUL ONE (11:29)
[2016-12-10] MEDS ORDERED: ZOFRAN IV PRN (11:30)
[2016-12-10] MEDS ORDERED: DECADRON ONE (11:30)
--- NOTE | 2016-12-10 11:53 | Operative Report ---
Operative Report Operative Report: PREOPERATIVE DIAGNOSIS: Desires permanent sterilization POSTOPERATIVE DIAGNOSIS: Same OPERATIVE PROCEDURE: Laparoscopic bilateral tubal ligation. SURGEON: Mik Chavez MD ANESTHESIA: General endotracheal intubation ANESTHESIOLOGIST: Dr. Barrera Flowers ESTIMATED BLOOD LOSS: Less than 10 mL's FINDINGS: Normal uterus. Normal tubes and ovaries bilaterally. COMPLICATIONS: None COUNTS: Correct x3. PROCEDURE: After the patient was correctly identified and after general anesthesia was administered, the patient was prepped and draped in usual sterile fashion and placed in dorsal lithotomy position. First, the bladder was emptied using a straight catheter. Next, a speculum was placed in the vaginal vault and the anterior lip of the cervix was grasped using a single- tooth tenaculum. The uterine manipulator was then placed and the tenaculum and speculum were removed. Attention was then turned to the abdomen where first a periumbilical incision was made using a skin knife, and the Optiview trocar was inserted under direct visualization. After an adequate amount of abdominal insufflation, visualization of the pelvic organs found the uterus to be normal, and the tubes and ovaries to be normal bilaterally. Next, the left fallopian tube was grasped using the Kleppingers, and after identifying the fimbriated end of the left tube, this tube was cauterized in 3 continuous [address] along the proximal portion of the left tube. The same procedure was performed on the right fallopian tube after first identifying the fimbriated end of the right tube. This tube was also cauterized in 3 continuous places along the proximal portion of the right tube. At this point, the procedure was then considered complete. All instruments were removed from the abdomen. The abdomen was deflated and the periumbilical incision was closed using 0 Vicryl suture in a [id number] configuration on the fascia, followed by 4-0 Monocryl suture in subcuticular fashion on the skin. The incision was also infiltrated using 0.5% Marcaine solution. The uterine manipulator was removed. The patient tolerated the procedure well and was transferred to recovery room stable condition.
[2016-12-10] MEDS: DILAUDID IV PRN ×2 (11:55→12:05)
[2016-12-10 12:31] VITALS: BP 115/73
--- NOTE | 2016-12-10 16:08 | Post Anesthesia Evaluation ---
- Post Anesthesia Evaluation Patient Participated: Yes Airway Patent: Yes Stable Respiratory Function: Yes Nausea/Vomiting: No Temp > 96.8F: Yes Pain Manageable: Yes Adequeate Hydration: Yes Anesthesia Complications: No Block Receding Appropriately: Not Applicable Patient on Ventilator: No
== END 2016-12-10 13:22 | disposition home or self-care (01) ==
LOC: OR 08:37
PROVIDERS: ATTEND Obstetrics & Gynecology
DX: Z30.2 Encounter for sterilization (principal); D64.9 Anemia, unspecified; Z87.891 Personal history of nicotine dependence; Z79.899 Other long term (current) drug therapy
CPT/HCPCS: 36415; 58670; 80048; 81025; 85027; J0690; J1100; J1170; J1885; J2250; J2405; J2704; J2710; J3010; J7120

== ENCOUNTER 2016-12-12 14:44 | Emergency (ER) | payer MEDICAID | END 2016-12-12 15:07 | disposition left against medical advice (07) | LOC: ED 14:44 | DX: R10.9 Unspecified abdominal pain (principal); Z53.21 Procedure and treatment not carried out due to patient leaving prior to being seen by health care provider ==

== ENCOUNTER 2018-08-23 16:49 | Emergency (ER) | payer MEDICAID, SELFPAY | END 2018-08-23 18:30 | disposition left against medical advice (07) | LOC: ED 16:49 ==

== ENCOUNTER 2018-08-24 08:44 | Emergency (ER) | payer BC ==
--- NOTE | 2018-08-24 08:59 | Emergency Department Report ---
Minor Respiratory - HPI Chief Complaint: Sore Throat Stated Complaint: COUGH COLD/SORE THROAT Time Seen by Provider: 08/24/18 08:55 Duration: 2 Days Pain Location: Throat Severity: mild Minor Respiratory: Yes Sore Throat, Yes Able to Tolerate Fluids, No Rhinorrhea, No Ear Pain, No Cough, No Sick Contacts, No Hemoptysis, No Chest Pain, No Shortness of Breath, No Fever Other History: 33 you female with 2 day hx of sore throat. denies fever. ED Review of Systems ROS: Stated complaint: COUGH COLD/SORE THROAT Other details as noted in HPI Comment: All other systems reviewed and negative Constitutional: denies: chills Eyes: denies: eye pain ENT: throat pain. denies: ear pain Respiratory: denies: cough Cardiovascular: denies: palpitations Endocrine: denies: excessive sweating Gastrointestinal: denies: abdominal pain Genitourinary: denies: dysuria Musculoskeletal: denies: back pain Neurological: denies: headache Hematological/Lymphatic: denies: easy bleeding ED Past Medical Hx - Past Medical History Hx Hypertension: No Hx Congestive Heart Failure: No Hx Diabetes: No Hx Deep Vein Thrombosis: No Hx Renal Disease: Yes (kidney stent placed 08/14/2016) Hx Sickle Cell Disease: No Hx Seizures: No Hx Kidney Stones: Yes Hx Asthma: No Hx COPD: No Hx HIV: No - Surgical History Additional Surgical History: RIGHT ANKLE - Social History Smoking Status: Current Every Day Smoker Substance Use Type: None - Medications Home Medications: Home Medications Medication Instructions Recorded Confirmed Last Taken Type RX: Amoxicillin 500 mg PO BID #20 capsule 08/24/18 Unknown Rx Minor Respiratory Exam - Exam General: Vital signs noted. No distress. Alert and acting appropriately. HEENT: Yes Pharyngeal Erythema, Yes Pharyngeal Exudates, Yes Moist Mucous Membranes, No Rhinorrhea, No Conjuctival Injection, No Frontal Tenderness, No Maxillary Tenderness Ear: Neither TM Bulge, Neither TM Erythema, Neither EAC Pain, Neither EAC Discharge Neck: Yes Supple, No Adenopathy Lungs: Yes Good Air Exchange, No Wheezes, No Ronchi, No Stridor, No Cough, No Labored Respirations, No Retractions, No Use of Accessory Muscles, No Other Abnormal Lung Sounds Heart: Yes Regular, No Murmur Abdomen: Yes Normal Bowel Sounds, No Tenderness, No Peritoneal Signs Skin: No Rash, No Edema Neurologic: Alert and oriented, no deficits. Musculoskeletal: Unremarkable. ED Course Vital Signs 08/24/18 08:51 Temperature 99 F Pulse Rate 89 Respiratory 18 Rate Blood Pressure 117/81 O2 Sat by Pulse 98 Oximetry ED Medical Decision Making - Medical Decision Making exudative pharyngitis ABC intact no abscess taking po ambulatory - Differential Diagnosis simple urti Critical care attestation.: If time is entered above; I have spent that time in minutes in the direct care of this critically ill patient, excluding procedure time. ED Disposition Clinical Impression: Exudative pharyngitis Disposition: -01 TO HOME OR SELFCARE Is pt being admited?: No Does the pt Need Aspirin: No Condition: Stable Instructions: Pharyngitis (ED) Additional Instructions: hydrate well with water motrin or tylenol for pain or fever good handwashing follow up pcp if persits med as ordered today Prescriptions: RX: Amoxicillin 500 mg PO BID #20 capsule Referrals: DEEPIKA JAMESON MD [Primary Care Provider] - 3-5 Days Time of Disposition: 08:58
== END 2018-08-24 09:28 | disposition home or self-care (01) ==
LOC: ED 08:44
CPT/HCPCS: 99282

== ENCOUNTER 2018-09-14 19:01 | Emergency (ER) | payer BC ==
[2018-09-14 19:22] VITALS: BP 121/83
--- NOTE | 2018-09-14 19:24 | Emergency Department Report ---
Blank Doc - Documentation Documentation: accidentally hit right hand on stretcher while working. now severe throbbing
--- NOTE | 2018-09-14 20:31 | XRay Report ---
FINAL REPORT PROCEDURE: XR HAND 3+V RT TECHNIQUE: Right hand, three views HISTORY: right hand injury COMPARISON: No prior studies are available for comparison. FINDINGS: No acute fracture or dislocation. No focal osseous lesions. No radiopaque foreign body. IMPRESSION: No acute fracture is seen
--- NOTE | 2018-09-14 21:21 | Emergency Department Report ---
ED Upper Extremity Inj HPI - General Chief Complaint: Extremity Injury, Upper Stated Complaint: RT HAND INJURY Time Seen by Provider: 09/14/18 19:21 Source: patient Mode of arrival: Ambulatory Limitations: No Limitations - History of Present Illness MD Complaint: Injury to:: right, hand -: minutes(s) Other Extremity Injury: Hand: Right Other Injuries: none Place: work Severity scale (0 -10): 5 Context: direct blow Associated Symptoms: denies other symptoms - Related Data Previous Rx's Medication Instructions Recorded Last Taken Type Amoxicillin 500 mg PO BID #20 capsule 08/24/18 Unknown Rx Allergies Allergy/AdvReac Type Severity Reaction Status Date / Time No Known Allergies Allergy Verified 08/24/18 08:51 ED Review of Systems ROS: Stated complaint: RT HAND INJURY Other details as noted in HPI Comment: All other systems reviewed and negative Constitutional: denies: chills, fever Respiratory: denies: cough, orthopnea, shortness of breath, SOB with exertion Gastrointestinal: denies: abdominal pain ED Past Medical Hx - Past Medical History Hx Hypertension: No Hx Congestive Heart Failure: No Hx Diabetes: No Hx Deep Vein Thrombosis: No Hx Renal Disease: Yes (kidney stent placed 08/14/2016) Hx Sickle Cell Disease: No Hx Seizures: No Hx Kidney Stones: Yes Hx Asthma: No Hx COPD: No Hx HIV: No - Surgical History Additional Surgical History: RIGHT ANKLE - Social History Smoking Status: Current Every Day Smoker Substance Use Type: None - Medications Home Medications: Home Medications Medication Instructions Recorded Confirmed Last Taken Type Amoxicillin 500 mg PO BID #20 capsule 08/24/18 Unknown Rx ED Physical Exam - General Limitations: No Limitations General appearance: alert, in no apparent distress - Head Head exam: Present: atraumatic, normocephalic, normal inspection - Eye Eye exam: Present: normal appearance - ENT ENT exam: Present: normal exam, normal orophraynx - Neck Neck exam: Present: normal inspection, full ROM. Absent: tenderness, meningismus, lymphadenopathy, thyromegaly - Respiratory Respiratory exam: Present: normal lung sounds bilaterally - Cardiovascular Cardiovascular Exam: Present: regular rate - GI/Abdominal GI/Abdominal exam: Present: soft. Absent: distended, tenderness, guarding, rebound - Expanded Upper Extremity Exam Right Hand Wrist exam: Present: full ROM, tenderness, swelling, ecchymosis. Absent: abrasion, laceration, deformity, crepidus, dislocation, erythema, amputation, nail avulsion Neuro motor exam: Present: wrist extension intact, thumb opposition intact, thumb IP flexion intact, thumb adduction intact, fingers 2-5 abduction intact Neurosensory exam: Present: 2-point discrimination, radial nerve intact, ulnar nerve intact, median nerve intact Vascular: Present: normal capillary refill ED Course Vital Signs 09/14/18 19:18 Temperature 99.1 F Pulse Rate 86 Respiratory 19 Rate Blood Pressure 121/83 O2 Sat by Pulse 98 Oximetry ED Medical Decision Making - Radiology Data Radiology results: report reviewed Referring Physician: COTY TEJADA Patient Name: MEAGAN HERRERA Date of : 1985 Sex: Female Report Date: 2018-09-14 Report Status: Finalized Findings [facility] [address] [place] [address] XRay Report Signed Patient: MEAGAN HERRERA MR#: [id number] : 1985 Acct:[id number] Age/Sex: 33 / F ADM Date: 09/14/18 Loc: ED Attending Dr: Ordering Physician: MOHIT HAYES Date of Service: 09/14/18 Procedure(s): XR hand 3+V RT Accession Number(s): [id number] cc: MOHIT HAYES Fluoro Time In Minutes: FINAL REPORT PROCEDURE: XR HAND 3+V RT TECHNIQUE: Right hand, three views HISTORY: right hand injury COMPARISON: No prior studies are available for comparison. FINDINGS: No acute fracture or dislocation. No focal osseous lesions. No radiopaque foreign body. IMPRESSION: No acute fracture is seen Transcribed By: [facility] Dictated By: WES VU M.D. Electronically Authenticated By: WES VU M.D. Signed Date/Time: 09/14/182030 DD/ 28 TD/TT: 09/14/182028 Critical care attestation.: If time is entered above; I have spent that time in minutes in the direct care of this critically ill patient, excluding procedure time. ED Disposition Clinical Impression: Contusion of hand, right Disposition: DC-01 TO HOME OR SELFCARE Is pt being admited?: No Condition: Stable Instructions: Contusion in Adults (ED) Referrals: PRIMARY CARE, [Referring] - 3-5 Days
== END 2018-09-14 20:25 | disposition home or self-care (01) ==
LOC: ED 19:01
DX: S60.221A Contusion of right hand, initial encounter (principal); F17.200 Nicotine dependence, unspecified, uncomplicated; Z87.442 Personal history of urinary calculi; X58.XXXA Exposure to other specified factors, initial encounter; Y93.89 Activity, other specified; Y92.69 Other specified industrial and construction area as the place of occurrence of the external cause; Y99.8 Other external cause status
CPT/HCPCS: 99283

== ENCOUNTER 2019-07-01 11:00 | Emergency (ER) | payer SELFPAY ==
[2019-07-01 11:17] VITALS: BP 128/83
--- NOTE | 2019-07-01 11:18 | Event Note ---
ED Screening Note ED Screening Note: lower abd pain that began a week ago +dysuria +frequency no fever LNMP: June 08 This initial assessment/diagnostic orders/clinical plan/treatment(s) is/are subject to change based on patients health status, clinical progression and re- assessment by fellow clinical providers in the ED. Further treatment and workup at subsequent clinical providers discretion. Patient/guardian urged not to elope from the ED as their condition may be serious if not clinically assessed and managed. Initial orders include: UA, urine preg
--- NOTE | 2019-07-01 11:43 | Emergency Department Report ---
ED Female HPI - General Chief complaint: Abdominal Pain Stated complaint: URINE PROBLEMS/STOMACH PAIN Time Seen by Provider: 07/01/19 11:15 Source: patient Mode of arrival: Ambulatory Limitations: No Limitations - History of Present Illness Initial comments: Araceli is a 34 yo female who presents with intermittent left flank discomfort for one week. Her true concern is vaginal discharge. When she urinates, outside of her vaginal torres with irritation once the urine comes in contact witht the skin. White discharge with itchiness. MD Complaint: vaginal discharge -: Gradual, week(s) (1) Location: labia Severity: mild Quality: burning Consistency: intermittent Worsens with: urination Are you Now?: No - Related Data Previous Rx's Medication Instructions Recorded Last Taken Type Amoxicillin 500 mg PO BID #20 capsule 08/24/18 Unknown Rx Naproxen [Naprosyn] 500 mg PO BID #14 tablet 09/14/18 Unknown Rx Fluconazole [Diflucan TAB] 200 mg PO ONCE #1 tablet 07/01/19 Unknown Rx metroNIDAZOLE [Flagyl TAB] 500 mg PO Q12HR 7 Days #14 tab 07/01/19 Unknown Rx Allergies Allergy/AdvReac Type Severity Reaction Status Date / Time No Known Allergies Allergy Verified 07/01/19 11:01 ED Review of Systems ROS: Stated complaint: URINE PROBLEMS/STOMACH PAIN Other details as noted in HPI Constitutional: denies: fever, malaise Gastrointestinal: abdominal pain. denies: nausea, vomiting Genitourinary: discharge. denies: urgency, dysuria Musculoskeletal: denies: back pain ED Past Medical Hx - Past Medical History Hx Hypertension: No Hx Congestive Heart Failure: No Hx Diabetes: No Hx Deep Vein Thrombosis: No Hx Renal Disease: Yes (kidney stent placed 08/14/2016) Hx Sickle Cell Disease: No Hx Seizures: No Hx Kidney Stones: Yes Hx Asthma: No Hx COPD: No Hx HIV: No - Surgical History Additional Surgical History: RIGHT ANKLE - Social History Smoking Status: Current Every Day Smoker Substance Use Type: None - Medications Home Medications: Home Medications Medication Instructions Recorded Confirmed Last Taken Type Amoxicillin 500 mg PO BID #20 capsule 08/24/18 Unknown Rx Naproxen [Naprosyn] 500 mg PO BID #14 tablet 09/14/18 Unknown Rx Fluconazole [Diflucan TAB] 200 mg PO ONCE #1 tablet 07/01/19 Unknown Rx metroNIDAZOLE [Flagyl TAB] 500 mg PO Q12HR 7 Days #14 tab 07/01/19 Unknown Rx ED Physical Exam - General Limitations: No Limitations General appearance: alert, in no apparent distress - Head Head exam: Present: atraumatic, normocephalic - Eye Eye exam: Present: normal appearance - ENT ENT exam: Present: mucous membranes moist - Neck Neck exam: Present: normal inspection, full ROM - Respiratory Respiratory exam: Present: normal lung sounds bilaterally. Absent: respiratory distress, wheezes, rales, rhonchi - Cardiovascular Cardiovascular Exam: Present: regular rate, normal rhythm, normal heart sounds. Absent: systolic murmur, diastolic murmur, rubs, gallop - GI/Abdominal GI/Abdominal exam: Present: soft, normal bowel sounds. Absent: distended, tenderness, guarding, rebound - Extremities Exam Extremities exam: Present: normal inspection - Neurological Exam Neurological exam: Present: alert, oriented X3 - Psychiatric Psychiatric exam: Present: normal affect, normal mood - Skin Skin exam: Present: warm, dry, intact, normal color. Absent: rash ED Course Vital Signs 07/01/19 11:15 Temperature 98.7 F Pulse Rate 60 Respiratory 18 Rate Blood Pressure 128/83 O2 Sat by Pulse 98 Oximetry ED Medical Decision Making - Medical Decision Making Vaginitis: Prescribed fluconazole, metronidazole. I do not suspect PID, ectopic or ovarian torsion with this presentation. Referral to sales ledger clerk. Critical care attestation.: If time is entered above; I have spent that time in minutes in the direct care of this critically ill patient, excluding procedure time. ED Disposition Clinical Impression: Vaginitis Disposition: DC-01 TO HOME OR SELFCARE Is pt being admited?: No Does the pt Need Aspirin: No Condition: Stable Instructions: Vaginitis (ED) Prescriptions: Fluconazole [Diflucan TAB] 200 mg PO ONCE #1 tablet metroNIDAZOLE [Flagyl TAB] 500 mg PO Q12HR 7 Days #14 tab Referrals: [facility] [Outside] - 3-5 Days MARIELY RODRIGUEZ MD [Staff Physician] - 3-5 Days
== END 2019-07-01 12:07 | disposition home or self-care (01) ==
LOC: ED 11:00
DX: N76.0 Acute vaginitis (principal); Z87.442 Personal history of urinary calculi; F17.200 Nicotine dependence, unspecified, uncomplicated; Z79.899 Other long term (current) drug therapy